=== PATIENT | male | born 1960 | race African-American/Black ===

== ENCOUNTER 2024-07-26 08:47 | Outpatient (CLI) | payer MEDICARE, SELFPAY ==
--- NOTE | 2024-07-29 19:04 | WPDHOMESLEEP ---
Sleep Study - Home Unattended Date of Study: 07/26/24 Ordering Provider: Greg DockeryMD Interpreting Provider: Naya Knox MD Home Sleep Study Type: Watch PAT Height: 1.75 m Weight: 136.985 kg Body Mass Index: 44.6 Neck Circumference (inches): 20 [place]: 24 Reason for Sleep Study Hypersomnolence Sleep History Keanu smalls is a 64-year-old man who had a home sleep test due to hypersomnolence. He did not feel of the sleep questionnaire therefore large amounts of data cannot be included in this report COUNTS INCLUDE 234 BEDS AT [facility] Past Medical History Medical History (Updated 07/29/24 @ 19:10 by Naya Knox MD) Dyslipidemia Seizure disorder Hypertension Family History Family History (Updated 07/29/24 @ 19:07 by Naya Knox MD) Mother Diabetes mellitus Father Malignant neoplasm of prostate Social History Social History (Updated 07/29/24 @ 19:09 by Naya Knox MD) Smoking packs per day: 0.75 Smoking cigarettes per day: 15.0 Years smoked: 25 Smoking pack-years: 18.75 Smoking status: Current every day smoker Alcohol intake: current Medications Medications: Albuterol sulfate inhaler 90 mcg per puff Atorvastatin 10 mg a day Hydrochlorothiazide 25 mg a day Lamotrigine 100 mg Metoprolol succinate ER 50 mg a day Naprosyn 500 mg Ozempic 0.25 mg or 0.5 mg (2 mg/1.5 mill) subcutaneous pen Injector' inject 0.25 mg weekly fir 4 weeks, then increase to 0.5 mg weekly for 4 weeks Valacyclovir Assessment and Plan Data The data obtained during this sleep study is adequate for interpretation. Certification This sleep study has been reviewed by a board certified sleep medicine physician.
[2024-07-29 19:10] VITALS: BMI 44.6
== END 2024-07-28 12:58 | disposition home or self-care (01) ==
PROVIDERS: PCP Internal Medicine; Visit Provider Internal Medicine
DX: G47.9 Sleep disorder, unspecified (principal)
CPT/HCPCS: 95800

== ENCOUNTER 2024-08-03 10:04 | Outpatient (CLI) | payer MEDICARE, SELFPAY ==
--- NOTE | ~2024-08-03 | CT_ITS ---
EXAMINATION: CT lung screening DATE: 08/03/2024 10:28 INDICATION: Nicotine dependence TECHNIQUE: Computed tomography (CT) of the chest was performed without intravenous contrast. Addition al 3D reconstructions utilizing coronal maximum intensity projection (MIP) were performed. Automated exposure control and iterative reconstruction technique were employed. The dose-length product was 26 3.13 mGy-cm. COMPARISON: None FINDINGS: Minimal biapical pleural-parenchymal scarring. Likely benign 7 mm triangular likely intrafissural lym ph node along the left major fissure with punctate calcification consistent with old granulomatous di sease. Additional tiny calcified nodule at the periphery of the right lower lobe also consistent with old granulomatous disease. 4-5 mm noncalcified right lower lobe nodule. Mild linear subpleural atele ctasis at the posterior right lower lobe. No pneumonia, pulmonary edema or pleural effusion. Heart si ze is normal. No pericardial effusion. Thoracic aorta is normal in caliber. No pathologically enlarge d thoracic lymphadenopathy. Bilateral gynecomastia. Visualized upper abdomen is unremarkable. Mild th oracic spondylosis. IMPRESSION: 1. Lung-RADS category 2: Benign appearance or behavior. Continue annual screening with noncontrast lo w-dose chest CT in 12 months. Reviewed, dictated and finalized at location B. NING CLERK IMPRESSION: 1. Lung-RADS category 2: Benign appearance or behavior. Continue annual screeni ng with noncontrast low-dose chest CT in 12 months.
--- OUTSIDE RECORDS SUMMARY | 2024-08-03 10:54 | XMS_ITS | CONTINUITY OF CARE DOCUMENT ---
Author Name mikiealejandrinamikiealejandrina Address Unknown Organization [facility] Address [address] [place] [address] Phone [phone] Care Team Providers Care System Operator Name Role Phone Buddy Hodge MD Unavailable PRASANTH GOLDSMITH MD Unavailable PRASANTH GOLDSMITH MD Unavailable [phone] PROBLEMS Condition Status Date Provider Notes Wheezing active Brooke Washburn Cardiology examination active Klaus green [employer] Shortness of breath active Klaus Acevedo [employer] Leg edema active Klaus Acevedo [employer] Abnormal EKG active Klaus Acevedo [employer] Hyperlipidemia active Klaus Acevedo [employer] Hypertension active Klaus Acevedo [employer] Obesity active Klaus Acevedo [employer] Seizure active Klaus Acevedo [employer] Body mass index (BMI) 45.0-49.9, adult active Klaus Acevedo [employer] VISHAL? active Klaus Acevedo [employer] PAT[employer] ENCOUNTERS Date Type Provider Location Encounter Diag nosis 07/29 - 07/29 In-person encounter Office Visit [facility] Cardiology examinationShortness of breat hLeg edemaAbnormal EKGHyperlipidemiaHypertensionObesitySeizureBody mass index (BMI) 45.0-49.9, adultOSA? VITAL SIGNS Date Observation Value Provider Body Mass Index (Ratio) 45.48 kg/m2 Lito Hodge MD blood pressure, diastolic 99 mm[Hg] Morena ruth David blood pressure, systolic 133 mm[Hg] Sania muller David oxygen saturation, oximetry 95 % Mindi David pulse rate 94 /min Mindi David respiratory rate E&M 14 /min Mindi Hernandez weight E&M 308 [lb_av] Mindi David height E&M 69 [in_i] Mindi David blood pressure, cuff size regular Morena ruth Hernandez ALLERGIES Allergy Name Onset Date Reaction Criticality Status LISINOPRIL High Criticality active HISTORY OF MEDICATION USE Medication Status Instructions Dates Provider Indications Com ments amlodipine 10 mg tablet active Take 1 t ablet by mouth once daily Mnidi Heranndez atorvastatin 10 mg tablet active TAKE 1 TABLET BY MOUTH EVERY DAY Mindi Hernandez hydrochlorothiazide 25 mg tablet active TAKE 1 TABLET BY MOUTH DAILY Mindievelia Hernandez SOCIAL HISTORY Date Observation Value Provider personal history of marijuana use no Klaus Rongey MANUEL drug use no Klaus Natany MANUEL alcohol use, type Gin Klaus R ongey [employer] alcohol use, average drinks per day socia l Klaus Rongey [employer] alcohol use yes Klaus Rongey [employer] smoking, year quit 2023 Klaus Rongey [employer] smoking history, total pack/day 1/2 Klaus Rongey [employer] cigarette use yes Klaus Ronge y [employer] smoking status Former smoker Klaus santamaria NP INSURANCE PROVIDERS Payer name Policy type / Coverage type [place] [employer] party ID AARP MEDICARE ADVANTAGE ([facility] COMPLETE PPO) Other [id number] ADVANCE DIRECTIVES Name Date DISCUSSED - NO DECISION MADE TREATMENT PLAN Date Name Performer Cardiology: H is updated medication list for this problem includes: Atorvastatin 10 Mg Tablet (Atorvastatin) ..... Take 1 tablet by mouth every day Klaus Acevedo NP Cardiology:If sleep study is positive, recommend CPAP Klaus Acevedo NP Cardiology:Needs med reconciliation His updated medication list for this problem includes: Amlodipine 10 Mg Tablet (Amlodipine) ..... Take 1 tablet by mouth once daily Hydrochlorothiazide 25 Mg Tablet (Hydrochlorothiazide) ..... Take 1 tablet by mouth daily BP today: 133/99 Klaus Acevedo NP Cardiology:Had PFTs normal C heck echo to assess cardiac anatomy and function A rrange for stress nuclear to r/o ischemia H as a pending sleep study Klaus Acevedo NP Cardiology:In light of his concerning sx of sob, will arrange for a exercise nuclear stress to be done. R ecommend nuclear imaging due toabnormal baseline changes in EKG Klausleno Gamamarcelino JACKSON Date Name Stress Exercise Card iolite Complete Echo HISTORY OF PROCEDURES Procedure Date Procedure Name Provider Procedure Notes S tatus EKG Buddy Hodge MD completed Spirometry Alex More Jr, MD completed FVC / MVV with bronchodilator - 94280 Alex More Jr, MD completed SpO2 w/o 6min walk/titration Alex More Jr, MD completed SVC - [id number] Alex More Jr, MD completed DLCO - [id number] Alex More Jr, MD completed
--- OUTSIDE RECORDS SUMMARY | 2024-08-03 10:54 | XMS_ITS | Data Portability ---
Author Organization [facility] Edwin Valdez Address [address] [place] [address] Care Team Providers Care Timber Management Specialist Name Role Phone PRASANTH DOCKERY Primary Care Provider [phone] Assessment Encounter Date Assessment Date Assessment LastModified by Organization Details LastModified Time 02/09/2024 02/09/2024 CBC CMP lipid A1 c thyroid studies and a PSA we will get records from [place] maintain him on his regular medications I will see him in 4 months obesity handout. Pending results of blood work we will try to get him in on GLP 1 agent there are no contraindications [email or web address] Not available 02/27/2024 17:21:03 06/14/2024 06/14/2024 dermatology. Healthy lifestyle care instructions. LD CT. PFTs. Echo. Blood work. Continue current therapy. Stay off cigarettes. 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 No seizure activity in the last year if not longer follow up with me in 4 months. Dietary strategies discussed for hypertension prediabetes and obesity [email or web address] Not available 06/19/2024 13:57:09 Plan of Treatment Reminders Order Date Submit Date Provider Last Modified By Organization Details Last Modified Time Details Appointments ANY 15 2024 10:15A Mariano Dockery MD Not available Not available Not available Lab PSA, total, serum or plasma 2023 024 [place] [facility], [address] [address], [place], [address], 02/10/2024 09:15:15 unliste d lab - T4, free 2023 024 [place] [facility], [address], [place], [address], 02/10/2024 09:15:11 T3, free, serum or plasma 2023 024 [place] [facility], [address], [place], [address], 02/10/2024 09:15:15 TSH, ultra-s ensitiv e, serum 2023 024 [place] [facility], [address], [place], [address], 02/10/2024 09:15:13 lipid panel, serum 2023 024 [place] [facility], [address], [place], [address], 02/10/2024 09:15:10 CMP, serum or plasma 2023 024 [place] [facility], [address], [place], [address], 02/10/2024 09:15:12 CBC w/ auto diff 2023 024 [place] [facility], [address], [place], [address], 02/10/2024 09:15:14 HbA1c (hemogl obin A1c), blood 2023 024 [place] [facility], [address], [place], [address], 02/10/2024 09:15:12 unliste d lab - T4, free 2023 024 [place] [facility], [address], [place], [address], 06/15/2024 09:13:53 T3, free, serum or plasma 2023 024 [place] [facility], [address], [place], [address], 06/15/2024 09:13:59 TSH, ultra-s ensitiv e, serum 2023 024 [place] [facility], [address], [place], [address], 06/15/2024 09:13:56 lipid panel, serum 2023 024 [place] [facility], [address], [place], [address], 06/15/2024 09:13:52 CBC w/ auto diff 2023 024 [place] [facility], [address], [place], [address], 06/15/2024 09:13:57 CMP, serum or plasma 2023 024 [place] [facility], [address], [place], [address], 06/15/2024 09:13:[address] referra l 2023 024 [facility], [address] [place] [address] Dr Enoch Marvin, [address], [place], [address], 07/27/2024 14:10:29 dermato logist referra l 2023 024 [facility], [address] [place] [address], [address], 07/26/2024 14:48:20 Procedures None recorde d. Surgeries None recorde d. Imaging home sleep study 2023 024 [facility] ([facility]), [address], [place], [address], 07/27/2024 14:09:26 LDCT, chest, for lung cancer screeni ng 2023 024 [facility] (Imaging), [address], [place], [address], 08/03/2024 11:45:13 US, echocar diogram 2023 024 [facility], [address], [address], [place], [address], 07/27/2024 14:09:02 PFT, complet e 2023 024 [facility], [address], [address], [place], [address], 06/20/2024 16:25:26 Medication Orders None recorde d. Patient TargetsNo targets recorded. Patient Instructions Encounter Date Encounter Id Patient Instructions Last Modified By Organization Details Last Modified Time 02/09/2024 [id number] A healthy lifestyle: care instructions [email or web address] Not available 02/09/2024 16:56:33 06/14/2024 [id number] A healthy lifestyle: care instructions Not available 06/14/2024 11:08:02 Reason for Referral City Recorder Referral for S kin lesion Referring Physician: Prasanth Dockery, Internal Medicine, Encounter Date: 06/14/2024 Urologist Referral for Erect ile dysfunction Referring Physician: Prasanth Dockery, Internal Medicine, Encounter Date: 06/14/2024 Results Created Date Observation Date Name Description Value Unit Range Abnormal Flag Note LastModifiedBy Organization Detail LastModifiedTime 02/09/2002/10/2024 LIPID PANEL cholesterol, total 200 mg/dL 100-19 9 above high normal Not Available [facility] ([facility]) [address] [facility], [place], [address], 02/10/2024 09:15:10 02/09/20 24 02/10/2024 LIPID PANEL triglyceride s 218 mg/dL 0-149 above high normal Not Available [facility] ([facility]) [address] [facility] [place] [place], [address], 02/10/2024 09:15:10 02/09/20 24 02/10/2024 LIPID PANEL HDL cholesterol 42 mg/dL >39 Not Available [facility] ([facility]) [address] [facility] [place] [place], [address], 02/10/2024 09:15:10 02/09/20 24 02/10/2024 LIPID PANEL VLDL cholesterol lynn 38 mg/dL 5-40 Not Available [facility] ([facility]) [address] [facility] [place] [place], [address], 02/10/2024 09:15:10 02/09/20 24 02/10/2024 LIPID PANEL LDL chol calc ([facility]) 120 mg/dL 0-99 above high normal Not Available [facility] ([facility]) [address] [place], [address], 02/10/2024 09:15:10 02/09/20 24 02/10/2024 T4, FREE T4,free(dire ct) 0.86 NG/dL 0.82-1 .77 Not Available [facility] ([facility]) [address] [facility] [place] [place], [address], 02/10/2024 09:15:11 02/09/20 24 02/10/2024 COMP. METAB OLIC PANEL (14) glucose 83 mg/dL 70-99 Not Available [facility] ([facility]) [address] [facility] [place] [place], [address], 02/10/2024 09:15:11 02/09/20 24 02/10/2024 COMP. METAB OLIC PANEL (14) BUN 15 mg/dL 8-27 Not Available [facility] ([facility]) [address] [place], [address], 02/10/2024 09:15:11 02/09/20 24 02/10/2024 COMP. METAB OLIC PANEL (14) creatinine 1.34 mg/dL 0.76-1 .27 above high normal Not Available [facility] ([facility]) [address] [facility], [place], [address], 02/10/2024 09:15:11 02/09/20 24 02/10/2024 COMP. METAB OLIC PANEL (14) eGFR 60 mL/mi n/1.7 3 >59 Not Available [facility] ([facility]) [address] [facility], [place], [address], 02/10/2024 09:15:11 02/09/20 24 02/10/2024 COMP. METAB OLIC PANEL (14) BUN/creatini ne ratio 11 -24 Not Available [facility] ([facility]) [address] [facility], [place], [address], 02/10/2024 09:15:11 02/09/20 24 02/10/2024 COMP. METAB OLIC PANEL (14) sodium 139 mmol/ L 134-14 4 Not Available [facility] ([facility]) [address] [facility] [place] [place], [address], 02/10/2024 09:15:11 02/09/20 24 02/10/2024 COMP. METAB OLIC PANEL (14) potassium 4.4 mmol/ L 3.5-5. 2 Not Available [facility] ([facility]) [address] [facility], [place], [address], 02/10/2024 09:15:11 02/09/20 24 02/10/2024 COMP. METAB OLIC PANEL (14) chloride 102 mmol/ L 96-106 Not Available [facility] ([facility]) [address] [facility], [place], [address], 02/10/2024 09:15:11 02/09/20 24 02/10/2024 COMP. METAB OLIC PANEL (14) carbon dioxide, total 23 mmol/ L 20-29 Not Available [facility] ([facility]) [address] [facility], [place], [address], 02/10/2024 09:15:11 02/09/20 24 02/10/2024 COMP. METAB OLIC PANEL (14) calcium 9.7 mg/dL 8.6-10 .2 Not Available [facility] ([facility]) [address] [facility], [place], [address], 02/10/2024 09:15:11 02/09/20 24 02/10/2024 COMP. METAB OLIC PANEL (14) protein, total 6.9 g/dL 6.0-8. 5 Not Available [facility] ([facility]) [address] [facility], [place], [address], 02/10/2024 09:15:11 02/09/20 24 02/10/2024 COMP. METAB OLIC PANEL (14) albumin 4.1 g/dL 3.9-4. 9 Not Available [facility] ([facility]) [address] [facility], [place], [address], 02/10/2024 09:15:11 02/09/20 24 02/10/2024 COMP. METAB OLIC PANEL (14) globulin, total 2.8 g/dL 1.5-4. 5 Not Available [facility] ([facility]) [address] [facility], [place], [address], 02/10/2024 09:15:11 02/09/20 24 02/10/2024 COMP. METAB OLIC PANEL (14) bilirubin, total <0.2 mg/dL 0.0-1. 2 Not Available [facility] ([facility]) [address] [facility] [place] [place], [address], 02/10/2024 09:15:11 02/09/20 24 02/10/2024 COMP. METAB OLIC PANEL (14) alkaline phosphatase 93 IU/L 44-121 Not Available [facility] ([facility]) [address] [facility] [place], [address], 02/10/2024 09:15:11 02/09/20 24 02/10/2024 COMP. METAB OLIC PANEL (14) AST (SGOT) 20 IU/L 0-40 Not Available [facility] ([facility]) [address] [facility] [place], [address], 02/10/2024 09:15:11 02/09/20 24 02/10/2024 COMP. METAB OLIC PANEL (14) ALT (SGPT) 21 IU/L 0-44 Not Available [facility] ([facility]) [address] [facility], [place], [address], 02/10/2024 09:15:11 02/09/20 24 02/10/2024 HEMOG LOBIN A1C hemoglobin A1C 5.9 % 4.8-5. 6 above high normal Predi abete s: 5.7 - 6.4 Diabe christiano: >6.4 Glyce yessenia contr ol for adult s with diabe christiano: <7.0 Not Available [facility] ([facility]) [address] [facility], [place], [address], 02/10/2024 09:15:12 02/09/20 24 02/10/2024 TSH TSH 1.670 uIU/m L 0.450- 4.500 Not Available [facility] ([facility]) [address] [facility], [place], [address], 02/10/2024 09:15:13 02/09/20 24 02/10/2024 CBC WITH DIFFE RENTI AL/PL ATELE T WBC 6.5 x10e3 /uL 3.4-10 .8 Not Available [facility] ([facility]) [address] [facility], [place], [address], 02/10/2024 09:15:14 02/09/20 24 02/10/2024 CBC WITH DIFFE RENTI AL/PL ATELE T RBC 5.37 x10e6 /uL 4.14-5 .80 Not Available [facility] ([facility]) [address] [facility], [place], [address], 02/10/2024 09:15:14 02/09/20 24 02/10/2024 CBC WITH DIFFE RENTI AL/PL ATELE T hemoglobin 15.3 g/dL 13.0-1 7.7 Not Available [facility] ([facility]) [address] [facility], [place], [address], 02/10/2024 09:15:14 02/09/20 24 02/10/2024 CBC WITH DIFFE RENTI AL/PL ATELE T hematocrit 47.8 % 37.5-5 1.0 Not Available [facility] ([facility]) [address] [facility], [place], [address], 02/10/2024 09:15:14 02/09/20 24 02/10/2024 CBC WITH DIFFE RENTI AL/PL ATELE T MCV 89 fL 79-97 Not Available [facility] ([facility]) [address] [place], [address], 02/10/2024 09:15:14 02/09/20 24 02/10/2024 CBC WITH DIFFE RENTI AL/PL ATELE T MCH 28.5 pg 26.6-3 3.0 Not Available [facility] ([facility]) [address] [facility], [place], [address], 02/10/2024 09:15:14 02/09/20 24 02/10/2024 CBC WITH DIFFE RENTI AL/PL ATELE T MCHC 32.0 g/dL 31.5-3 5.7 Not Available [facility] ([facility]) [address] [facility], [place], [address], 02/10/2024 09:15:14 02/09/20 24 02/10/2024 CBC WITH DIFFE RENTI AL/PL ATELE T RDW 12.9 % 11.6-1 5.4 Not Available [facility] ([facility]) [address] [facility], [place], [address], 02/10/2024 09:15:14 02/09/20 24 02/10/2024 CBC WITH DIFFE RENTI AL/PL ATELE T platelets 322 x10e3 /uL 150-45 0 Not Available [facility] ([facility]) [address] [facility], [place], [address], 02/10/2024 09:15:14 02/09/20 24 02/10/2024 CBC WITH DIFFE RENTI AL/PL ATELE T neutrophils 48 % notest ab. Not Available [facility] ([facility]) [address] [facility], [place], [address], 02/10/2024 09:15:14 02/09/20 24 02/10/2024 CBC WITH DIFFE RENTI AL/PL ATELE T lymphs 37 % notest ab. Not Available [facility] ([facility]) [address] [facility], [place], [address], 02/10/2024 09:15:14 02/09/20 24 02/10/2024 CBC WITH DIFFE RENTI AL/PL ATELE T monocytes 11 % notest ab. Not Available [facility] ([facility]) [address] [facility], [place], [address], 02/10/2024 09:15:14 02/09/20 24 02/10/2024 CBC WITH DIFFE RENTI AL/PL ATELE T eos 3 % notest ab. Not Available [facility] ([facility]) [address] [facility], [place], [address], 02/10/2024 09:15:14 02/09/20 24 02/10/2024 CBC WITH DIFFE RENTI AL/PL ATELE T basos 1 % notest ab. Not Available [facility] ([facility]) [address] [facility] [place], [address], 02/10/2024 09:15:14 02/09/20 24 02/10/2024 CBC WITH DIFFE RENTI AL/PL ATELE T neutrophils (absolute) 3.1 x10e3 /uL 1.4-7. 0 Not Available [facility] ([facility]) [address] [facility], [place], [address], 02/10/2024 09:15:14 02/09/20 24 02/10/2024 CBC WITH DIFFE RENTI AL/PL ATELE T lymphs (absolute) 2.4 x10e3 /uL 0.7-3. 1 Not Available [facility] ([facility]) [address] [facility], [place], [address], 02/10/2024 09:15:14 02/09/20 24 02/10/2024 CBC WITH DIFFE RENTI AL/PL ATELE T monocytes(ab solute) 0.7 x10e3 /uL 0.1-0. 9 Not Available [facility] ([facility]) [address] [facility], [place], [address], 02/10/2024 09:15:14 02/09/20 24 02/10/2024 CBC WITH DIFFE RENTI AL/PL ATELE T eos (absolute) 0.2 x10e3 /uL 0.0-0. 4 Not Available [facility] ([facility]) [address] [facility], [place], [address], 02/10/2024 09:15:14 02/09/20 24 02/10/2024 CBC WITH DIFFE RENTI AL/PL ATELE T baso (absolute) 0.1 x10e3 /uL 0.0-0. 2 Not Available [facility] ([facility]) [address] [facility], [place], [address], 02/10/2024 09:15:14 02/09/20 24 02/10/2024 CBC WITH DIFFE RENTI AL/PL ATELE T immature granulocytes 0 % notest ab. Not Available [facility] ([facility]) [address] [facility], [place], [address], 02/10/2024 09:15:14 02/09/20 24 02/10/2024 CBC WITH DIFFE RENTI AL/PL ATELE T immature grans (abs) 0.0 x10e3 /uL 0.0-0. 1 Not Available [facility] ([facility]) [address] [facility], [place], [address], 02/10/2024 09:15:14 02/09/20 24 02/10/2024 PROST ATE-S PECIF IC AG prostate specific Ag 1.4 NG/mL 0.0-4. 0 Shell ECLIA metho dolog y. Accor ding to the Ameri can [employer]o g[employer] iatio n, Serum PSA shoul d decre ase and remai n at undet ectab le level s after radic al prost atect shruthi. The AUA defin es bioch emica l recur rence as an initi al PSA value 0.2 ng/mL or great er follo wed by a subse quent confi rmato ry PSA value 0.2 ng/mL or great er. Value s obtai leena with diffe rent assay metho ds or kits canno t be used inter lowry eably . Resul ts canno t be inter prete d as absol [facility]. [facility]orge evide nce of the prese nce or absen ce of an mattson se. Not Available [facility] ([facility]) [address] [facility], [place], [address], 02/10/2024 09:15:15 02/09/20 24 02/10/2024 TRIIO DOTHY WADE E (T3), FREE triiodothyro nine (T3), free 3.2 pg/mL 2.0-4. 4 Not Available [facility] ([facility]) [address] [facility], [place], [address], 02/10/2024 09:15:15 06/14/20 24 06/15/2024 LIPID PANEL cholesterol, total 188 mg/dL 100-19 9 Not Available [facility] ([facility]) [address] [place], [address], 06/15/2024 09:13:52 06/14/20 24 06/15/2024 LIPID PANEL triglyceride s 140 mg/dL 0-149 Not Available [facility] ([facility]) [address] [place], [address], 06/15/2024 09:13:52 06/14/20 24 06/15/2024 LIPID PANEL HDL cholesterol 44 mg/dL >39 Not Available [facility] ([facility]) [address] [place], [address], 06/15/2024 09:13:52 06/14/20 24 06/15/2024 LIPID PANEL VLDL cholesterol lynn 25 mg/dL 5-40 Not Available [facility] ([facility]) [address] [place], [address], 06/15/2024 09:13:52 06/14/20 24 06/15/2024 LIPID PANEL LDL chol calc ([facility]) 119 mg/dL 0-99 above high normal Not Available [facility] ([facility]) [address] [place], [address], 06/15/2024 09:13:52 06/14/20 24 06/15/2024 T4, FREE T4,free(dire ct) 0.84 NG/dL 0.82-1 .77 Not Available [facility] ([facility]) [address] [place], [address], 06/15/2024 09:13:53 06/14/20 24 06/15/2024 COMP. METAB OLIC PANEL (14) glucose 101 mg/dL 70-99 above high normal Not Available [facility] ([facility]) [address] [place], [address], 06/15/2024 09:13:55 06/14/20 24 06/15/2024 COMP. METAB OLIC PANEL (14) BUN 14 mg/dL 8-27 Not Available [facility] ([facility]) [address] [facility], [place], [address], 06/15/2024 09:13:55 06/14/20 24 06/15/2024 COMP. METAB OLIC PANEL (14) creatinine 1.16 mg/dL 0.76-1 .27 Not Available [facility] ([facility]) [address] [facility] [place], [address], 06/15/2024 09:13:55 06/14/20 24 06/15/2024 COMP. METAB OLIC PANEL (14) eGFR 72 mL/mi n/1.7 3 >59 Not Available [facility] ([facility]) [address] [facility] [place] [place], [address], 06/15/2024 09:13:55 06/14/20 24 06/15/2024 COMP. METAB OLIC PANEL (14) BUN/creatini ne ratio 12 - Not Available [facility] ([facility]) [address] [facility], [place], [address], 06/15/2024 09:13:55 06/14/20 24 06/15/2024 COMP. METAB OLIC PANEL (14) sodium 139 mmol/ L 134-14 4 Not Available [facility] ([facility]) [address] [facility] [place] [place], [address], 06/15/2024 09:13:55 06/14/20 24 06/15/2024 COMP. METAB OLIC PANEL (14) potassium 4.3 mmol/ L 3.5-5. 2 Not Available [facility] ([facility]) [address] [facility] [place] [place], [address], 06/15/2024 09:13:55 06/14/20 24 06/15/2024 COMP. METAB OLIC PANEL (14) chloride 104 mmol/ L 96-106 Not Available [facility] ([facility]) [address] [facility] [place], [address], 06/15/2024 09:13:55 06/14/20 24 06/15/2024 COMP. METAB OLIC PANEL (14) carbon dioxide, total 20 mmol/ L 20-29 Not Available [facility] ([facility]) [address] [facility] [place] [place], [address], 06/15/2024 09:13:55 06/14/20 24 06/15/2024 COMP. METAB OLIC PANEL (14) calcium 9.0 mg/dL 8.6-10 .2 Not Available [facility] ([facility]) [address] [facility] [place], [address], 06/15/2024 09:13:55 06/14/20 24 06/15/2024 COMP. METAB OLIC PANEL (14) protein, total 6.6 g/dL 6.0-8. 5 Not Available [facility] ([facility]) [address] [facility] [place] [place], [address], 06/15/2024 09:13:55 06/14/20 24 06/15/2024 COMP. METAB OLIC PANEL (14) albumin 4.1 g/dL 3.9-4. 9 Not Available [facility] ([facility]) [address] [facility] [place] [place], [address], 06/15/2024 09:13:55 06/14/20 24 06/15/2024 COMP. METAB OLIC PANEL (14) globulin, total 2.5 g/dL 1.5-4. 5 Not Available [facility] ([facility]) [address] [facility] [place] [place], [address], 06/15/2024 09:13:55 06/14/20 24 06/15/2024 COMP. METAB OLIC PANEL (14) bilirubin, total 0.3 mg/dL 0.0-1. 2 Not Available [facility] ([facility]) [address] [facility], [place], [address], 06/15/2024 09:13:55 06/14/20 24 06/15/2024 COMP. METAB OLIC PANEL (14) alkaline phosphatase 90 IU/L 44-121 Not Available [facility] ([facility]) [address] [facility], [place], [address], 06/15/2024 09:13:55 06/14/20 24 06/15/2024 COMP. METAB OLIC PANEL (14) AST (SGOT) 30 IU/L 0-40 Not Available [facility] ([facility]) [address] [facility], [place], [address], 06/15/2024 09:13:55 06/14/20 24 06/15/2024 COMP. METAB OLIC PANEL (14) ALT (SGPT) 33 IU/L 0-44 Not Available [facility] ([facility]) [address] [facility], [place], [address], 06/15/2024 09:13:55 06/14/20 24 06/15/2024 TSH TSH 1.480 uIU/m L 0.450- 4.500 Not Available [facility] ([facility]) [address] [place], [address], 06/15/2024 09:13:56 06/14/20 24 06/15/2024 CBC WITH DIFFE RENTI AL/PL ATELE T WBC 6.3 x10e3 /uL 3.4-10 .8 Not Available [facility] ([facility]) [address] [place], [address], 06/15/2024 09:13:57 06/14/20 24 06/15/2024 CBC WITH DIFFE RENTI AL/PL ATELE T RBC 5.45 x10e6 /uL 4.14-5 .80 Not Available [facility] ([facility]) [address] [facility] [place], [address], 06/15/2024 09:13:57 06/14/20 24 06/15/2024 CBC WITH DIFFE RENTI AL/PL ATELE T hemoglobin 15.2 g/dL 13.0-1 7.7 Not Available [facility] ([facility]) [address] [place], [address], 06/15/2024 09:13:57 06/14/2006/15/2024 CBC WITH DIFFE RENTI AL/PL ATELE T hematocrit 47.1 % 37.5-5 1.0 Not Available [facility] ([facility]) [address] [place], [address], 06/15/2024 09:13:57 06/14/20 24 06/15/2024 CBC WITH DIFFE RENTI AL/PL ATELE T MCV 86 fL 79-97 Not Available [facility] ([facility]) [address] [facility], [place], [address], 06/15/2024 09:13:57 06/14/2006/15/2024 CBC WITH DIFFE RENTI AL/PL ATELE T MCH 27.9 pg 26.6-3 3.0 Not Available [facility] ([facility]) [address] [place], [address], 06/15/2024 09:13:57 06/14/2006/15/2024 CBC WITH DIFFE RENTI AL/PL ATELE T MCHC 32.3 g/dL 31.5-3 5.7 Not Available [facility] ([facility]) [address] [place], [address], 06/15/2024 09:13:57 06/14/20 24 06/15/2024 CBC WITH DIFFE RENTI AL/PL ATELE T RDW 13.7 % 11.6-1 5.4 Not Available [facility] ([facility]) [address] [place], [address], 06/15/2024 09:13:57 06/14/20 24 06/15/2024 CBC WITH DIFFE RENTI AL/PL ATELE T platelets 292 x10e3 /uL 150-45 0 Not Available [facility] ([facility]) [address] [facility], [place], [address], 06/15/2024 09:13:57 06/14/20 24 06/15/2024 CBC WITH DIFFE RENTI AL/PL ATELE T neutrophils 57 % notest ab. Not Available [facility] ([facility]) [address] [facility], [place], [address], 06/15/2024 09:13:57 06/14/20 24 06/15/2024 CBC WITH DIFFE RENTI AL/PL ATELE T lymphs 29 % notest ab. Not Available [facility] ([facility]) [address] [facility], [place], [address], 06/15/2024 09:13:57 06/14/20 24 06/15/2024 CBC WITH DIFFE RENTI AL/PL ATELE T monocytes 11 % notest ab. Not Available [facility] ([facility]) [address] [facility], [place], [address], 06/15/2024 09:13:57 06/14/20 24 06/15/2024 CBC WITH DIFFE RENTI AL/PL ATELE T eos 2 % notest ab. Not Available [facility] ([facility]) [address] [facility], [place], [address], 06/15/2024 09:13:57 06/14/20 24 06/15/2024 CBC WITH DIFFE RENTI AL/PL ATELE T basos 1 % notest ab. Not Available [facility] ([facility]) [address] [facility], [place], [address], 06/15/2024 09:13:57 06/14/20 24 06/15/2024 CBC WITH DIFFE RENTI AL/PL ATELE T neutrophils (absolute) 3.6 x10e3 /uL 1.4-7. 0 Not Available [facility] ([facility]) [address] [facility], [place], [address], 06/15/2024 09:13:57 06/14/20 24 06/15/2024 CBC WITH DIFFE RENTI AL/PL ATELE T lymphs (absolute) 1.8 x10e3 /uL 0.7-3. 1 Not Available [facility] ([facility]) [address] [facility], [place], [address], 06/15/2024 09:13:57 06/14/20 24 06/15/2024 CBC WITH DIFFE RENTI AL/PL ATELE T monocytes(ab solute) 0.7 x10e3 /uL 0.1-0. 9 Not Available [facility] ([facility]) [address] [facility], [place], [address], 06/15/2024 09:13:57 06/14/20 24 06/15/2024 CBC WITH DIFFE RENTI AL/PL ATELE T eos (absolute) 0.1 x10e3 /uL 0.0-0. 4 Not Available [facility] ([facility]) [address] [place] [address], [place], [address], 06/15/2024 09:13:57 06/14/20 24 06/15/2024 CBC WITH DIFFE RENTI AL/PL ATELE T baso (absolute) 0.1 x10e3 /uL 0.0-0. 2 Not Available [facility] ([facility]) [address] [place] [address], [address], 06/15/2024 09:13:57 06/14/20 24 06/15/2024 CBC WITH DIFFE RENTI AL/PL ATELE T immature granulocytes 0 % notest ab. Not Available [facility] ([facility]) [address] [place], [address], 06/15/2024 09:13:57 06/14/20 24 06/15/2024 CBC WITH DIFFE RENTI AL/PL ATELE T immature grans (abs) 0.0 x10e3 /uL 0.0-0. 1 Not Available [facility] ([facility]) [address] [facility], [place], [address], 06/15/2024 09:13:57 06/14/20 24 06/15/2024 TRIIO DOTHY WADE E (T3), FREE triiodothyro nine (T3), free 3.8 pg/mL 2.0-4. 4 Not Available [facility] ([facility]) [address] [facility], [place], [address], 06/15/2024 09:13:58 06/20/20 24 06/20/2024 PFT, compl ete No observ ation record ed. [facility] [address] [facility] [address], [place], [address], 06/20/2024 23:16:34 08/03/19 25 08/03/2024 LDCT, chest , for lung cance r scree margy No observ ation record ed. [facility] [address], [place], [address], 08/03/2024 11:45:13 Result Notes None recorded. Problems Name Problem SNOMED Code Status Onset Date Resolution Date Notes Provider Name and Address Organization Details Recorded Time Essential hypertension 26000084 Active 2023 Faith Stone LPN null, [place] - [facility] 4 10:13:59 Epilepsy 76832344 Active 2023 Faith Stone LPN [place] [facility] 4 10:14:14 Obstructive sleep apnea syndrome 96320876 Active 2023 Prasanth Dockery MD Attn: Eneida g,[address] [facility], [place], [address], [place] [facility] 4 11:12:29 Gastroesophage al reflux disease without esophagitis 286214907 Active 2023 Prasanth Dockery MD Attn: Eneida cabrera,[address] [facility], [place], [address] [place] - [facility] 4 11:12:38 Skin lesion 63934986 Active 2023 Stewart Rolon [place], [place] [facility] 4 12:23:37 Body mass index 40+ - severely obese 252744230 Active 2023 Stewart Rolon [place] [facility] 4 12:23:38 Morbid obesity 832479004 Active 2023 Stewart Rolon [place] [facility] 4 12:23:39 Dyspnea 398753443 Active 2023 Stewart Rol[place] [facility] 4 12:23:43 Erectile dysfunction 553823023 Active 2023 Stewart Rol[place] [facility] 4 12:23:46 Sleep disorder 60962111 Active 2023 Stewart Rol[place] [facility] 4 12:23:48 Nicotine dependence 49033684 Active 2023 Stewart Rolon [place] [facility] 4 12:23:50 Problem Notes None recorded. Procedures Surgical History Date Name Laterality Status Provider Name and Address Organization Details Recorded Time procedure on brain completed Itzel Young MA [place] - [facility]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
== END 2024-08-03 10:05 | disposition home or self-care (01) ==
PROVIDERS: PCP Internal Medicine; Visit Provider Internal Medicine
DX: Z12.2 Encounter for screening for malignant neoplasm of respiratory organs (principal); Z87.891 Personal history of nicotine dependence
CPT/HCPCS: 71271

== ENCOUNTER 2024-08-18 13:32 | Outpatient (CLI) | payer MEDICARE, SELFPAY ==
--- OUTSIDE RECORDS SUMMARY | 2024-08-18 13:38 | XMS_ITS | Data Portability ---
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 Pending results of blood work we will try to get him in on GLP 1 agent there are no contraindications [email or web address] Not available 02/27/2024 17:21:03 06/14/2024 06/14/2024 dermatology. Healthy lifestyle care instructions. LD CT. PFTs. Echo. Blood work. Continue current therapy. Stay off cigarettes. 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 No seizure activity in the last year if not longer follow up with me in 4 months. Dietary strategies discussed for hypertension prediabetes and obesity Not available 06/19/2024 13:57:09 Plan of Treatment Reminders Order Date Submit Date Provider Last Modified By Organization Details Last Modified Time Details Appointments ANY 15 2024 10:15A Mariano Dockery MD Not available Not available Not available Lab unlist ed lab - T4, free 2023 024 [place], [address] [address], [place], [address], 06/15/2024 09:13:53 T3, free, serum or plasma 2023 024 [facility], [address], [address], [place], [address], 06/15/2024 09:13:59 TSH, ultra- sensit prabhakar, serum [address] [facility], [address], [address], [place], [address], 06/15/2024 09:13:56 lipid panel, serum [address] [facility], [address], [place], [address], 06/15/2024 09:13:52 CBC w/ auto diff [address] [facility], [address], [place], [address], 06/15/2024 09:13:57 CMP, serum or plasma [address] [facility], [address], [place], [address], 06/15/2024 09:13:55 PSA, total, serum or plasma [address] [facility], [address], [address], [place], [address], 02/10/2024 09:15:15 unlist ed lab - T4, free [address] [facility], [address], [place], [address], 02/10/2024 09:15:11 T3, free, serum or plasma [address] [facility], [address], [place], [address], 02/10/2024 09:15:15 TSH, ultra- sensit prabhakar, serum 2023 024 [place], [address], [address], [place], [address], 02/10/2024 09:15:13 lipid panel, serum 2023 024 [place], [address], [place], [address], 02/10/2024 09:15:10 CMP, serum or plasma 2023 024 [facility], [address], [place], [address], 02/10/2024 09:15:12 CBC w/ auto diff 2023 024 [place], [address], [place], [address], 02/10/2024 09:15:14 HbA1c (hemog lobin A1c), blood 2023 024 [facility], [address], [address], [place], [address], 02/10/2024 09:15:12 Referral urolog ist referr al 2023 024 [facility], [address] [place] [address] Dr Enoch Marvin, [address], [place], [address], 08/17/2024 04:11:16 dermat ologis t referr al 2023 024 [place], [address] [place] [address], [address], 08/16/2024 04:08:30 Procedures None record ed. Surgeries None record ed. Imaging home sleep study 2023 024 [facility] ([facility]), [address], [place], [address], 08/05/2024 21:27:35 LDCT, chest, for lung cancer screen ing 2023 024 [facility] (Imaging), [address], [place], [address], 08/05/2024 09:13:59 US, echoca rdiogr am 2023 024 [facility], [address], [address], [place], [address], 08/10/2024 16:05:01 PFT, comple te 2023 024 [facility], [address], [address], [place], [address], 06/20/2024 16:25:26 Medication Orders None record ed. Patient TargetsNo targets recorded. Patient Instructions Encounter Date Encounter Id Patient Instructions Last Modified By Organization Details Last Modified Time 02/09/2024 [id number] A healthy lifestyle: care instructions Not available 02/09/2024 16:56:33 06/14/2024 [id number] A healthy lifestyle: care instructions Not available 06/14/2024 11:08:02 Reason for Referral Coiler Referral for S kin lesion Referring Physician: Prasanth Dockery, Internal Medicine, Encounter Date: 06/14/2024 Urologist Referral for Erect ile dysfunction Referring Physician: Prasanth Dockery, Internal Medicine, Encounter Date: 06/14/2024 Results Created Date Observation Date Name Description Value Unit Range Abnormal Flag Note LastModifiedBy Organization Detail LastModifiedTime 02/09/2002/10/2024 LIPID PANEL cholesterol, total 200 mg/dL 100-19 9 above high normal Not Available [facility] ([facility]) [address] [facility], [place], [address], 02/10/2024 09:15:10 02/09/20 24 02/10/2024 LIPID PANEL triglyceride s 218 mg/dL 0-149 above high normal Not Available [facility] ([facility]) [address] [facility] [place], [address], 02/10/2024 09:15:10 02/09/20 24 02/10/2024 LIPID PANEL HDL cholesterol 42 mg/dL >39 Not Available [facility] ([facility]) [address] [facility] [place], [address], 02/10/2024 09:15:10 02/09/20 24 02/10/2024 LIPID PANEL VLDL cholesterol lynn 38 mg/dL 5-40 Not Available [facility] ([facility]) [address] [facility] [place], [address], 02/10/2024 09:15:10 02/09/20 24 02/10/2024 LIPID PANEL LDL chol calc ([facility]) 120 mg/dL 0-99 above high normal Not Available [facility] ([facility]) [address] [facility] [place], [address], 02/10/2024 09:15:10 02/09/20 24 02/10/2024 T4, FREE T4,free(dire ct) 0.86 NG/dL 0.82-1 .77 Not Available [facility] ([facility]) [address] [facility] [place], [address], 02/10/2024 09:15:11 02/09/20 24 02/10/2024 COMP. METAB OLIC PANEL (14) glucose 83 mg/dL 70-99 Not Available [facility] ([facility]) [address] [place], [address], 02/10/2024 09:15:11 02/09/20 24 02/10/2024 COMP. METAB OLIC PANEL (14) BUN 15 mg/dL 8-27 Not Available [facility] ([facility]) [address] [place], [address], 02/10/2024 09:15:11 02/09/20 24 02/10/2024 COMP. METAB OLIC PANEL (14) creatinine 1.34 mg/dL 0.76-1 .27 above high normal Not Available [facility] ([facility]) [address] [facility], [place], [address], 02/10/2024 09:15:11 02/09/20 24 02/10/2024 COMP. METAB OLIC PANEL (14) eGFR 60 mL/mi n/1.7 3 >59 Not Available [facility] ([facility]) [address] [facility], [place], [address], 02/10/2024 09:15:11 02/09/20 24 02/10/2024 COMP. METAB OLIC PANEL (14) BUN/creatini ne ratio 11 10-24 Not Available [facility] ([facility]) [address] [facility], [place], [address], 02/10/2024 09:15:11 02/09/20 24 02/10/2024 COMP. METAB OLIC PANEL (14) sodium 139 mmol/ L 134-14 4 Not Available [facility] ([facility]) [address] [facility], [place], [address], 02/10/2024 09:15:11 02/09/20 24 02/10/2024 COMP. METAB OLIC PANEL (14) potassium 4.4 mmol/ L 3.5-5. 2 Not Available [facility] ([facility]) [address] [facility], [place], [address], 02/10/2024 09:15:11 02/09/20 24 02/10/2024 COMP. METAB OLIC PANEL (14) chloride 102 mmol/ L 96-106 Not Available [facility] ([facility]) [address] [facility], [place], [address], 02/10/2024 09:15:11 02/09/20 24 02/10/2024 COMP. METAB OLIC PANEL (14) carbon dioxide, total 23 mmol/ L 20-29 Not Available [facility] ([facility]) [address], [place], [address], 02/10/2024 09:15:11 02/09/20 24 02/10/2024 COMP. METAB OLIC PANEL (14) calcium 9.7 mg/dL 8.6-10 .2 Not Available [facility] ([facility]) [address], [place], [address], 02/10/2024 09:15:11 02/09/20 24 02/10/2024 COMP. METAB OLIC PANEL (14) protein, total 6.9 g/dL 6.0-8. 5 Not Available [facility] ([facility]) [address], [place], [address], 02/10/2024 09:15:11 02/09/20 24 02/10/2024 COMP. METAB OLIC PANEL (14) albumin 4.1 g/dL 3.9-4. 9 Not Available [facility] ([facility]) [address] [place], [address], 02/10/2024 09:15:11 02/09/20 24 02/10/2024 COMP. METAB OLIC PANEL (14) globulin, total 2.8 g/dL 1.5-4. 5 Not Available [facility] ([facility] [address] [place], [address], 02/10/2024 09:15:11 02/09/20 24 02/10/2024 COMP. METAB OLIC PANEL (14) bilirubin, total <0.2 mg/dL 0.0-1. 2 Not Available [facility] ([facility]) [address] [place], [address], 02/10/2024 09:15:11 02/09/20 24 02/10/2024 COMP. METAB OLIC PANEL (14) alkaline phosphatase 93 IU/L 44-121 Not Available [facility] ([facility]) [address] [facility], [place], [address], 02/10/2024 09:15:11 02/09/20 24 02/10/2024 COMP. METAB OLIC PANEL (14) AST (SGOT) 20 IU/L 0-40 Not Available [facility] ([facility]) [address] [facility], [place], [address], 02/10/2024 09:15:11 02/09/20 24 02/10/2024 COMP. METAB OLIC PANEL (14) ALT (SGPT) 21 IU/L 0-44 Not Available [facility] ([facility]) [address] [facility], [place], [address], 02/10/2024 09:15:11 02/09/20 24 02/10/2024 HEMOG LOBIN A1C hemoglobin A1C 5.9 % 4.8-5. 6 above high normal Predi abete s: 5.7 - 6.4 Diabe christiano: >6.4 Glyce yessenia contr ol for adult s with diabe christiano: <7.0 Not Available [facility] ([facility]) [address] [facility], [place], [address], 02/10/2024 09:15:12 02/09/20 24 02/10/2024 TSH TSH 1.670 uIU/m L 0.450- 4.500 Not Available [facility] ([facility]) [address] [place], [address], 02/10/2024 09:15:13 02/09/20 24 02/10/2024 CBC WITH DIFFE RENTI AL/PL ATELE T WBC 6.5 x10e3 /uL 3.4-10 .8 Not Available [facility] ([facility]) [address] [facility], [place], [address], 02/10/2024 09:15:14 02/09/20 24 02/10/2024 CBC WITH DIFFE RENTI AL/PL ATELE T RBC 5.37 x10e6 /uL 4.14-5 .80 Not Available [facility] ([facility]) [address] [facility], [place], [address], 02/10/2024 09:15:14 02/09/20 24 02/10/2024 CBC WITH DIFFE RENTI AL/PL ATELE T hemoglobin 15.3 g/dL 13.0-1 7.7 Not Available [facility] ([facility]) [address] [facility], [place], [address], 02/10/2024 09:15:14 02/09/20 24 02/10/2024 CBC WITH DIFFE RENTI AL/PL ATELE T hematocrit 47.8 % 37.5-5 1.0 Not Available [facility] ([facility]) [address] [facility], [place], [address], 02/10/2024 09:15:14 02/09/20 24 02/10/2024 CBC WITH DIFFE RENTI AL/PL ATELE T MCV 89 fL 79-97 Not Available [facility] ([facility]) [address] [place], [address], 02/10/2024 09:15:14 02/09/20 24 02/10/2024 CBC WITH DIFFE RENTI AL/PL ATELE T MCH 28.5 pg 26.6-3 3.0 Not Available [facility] ([facility]) [address] [place], [address], 02/10/2024 09:15:14 02/09/20 24 02/10/2024 CBC WITH DIFFE RENTI AL/PL ATELE T MCHC 32.0 g/dL 31.5-3 5.7 Not Available [facility] ([facility]) [address] [place], [address], 02/10/2024 09:15:14 02/09/20 24 02/10/2024 CBC WITH DIFFE RENTI AL/PL ATELE T RDW 12.9 % 11.6-1 5.4 Not Available [facility] ([facility]) [address] [facility], [place], [address], 02/10/2024 09:15:14 02/09/20 24 02/10/2024 CBC WITH DIFFE RENTI AL/PL ATELE T platelets 322 x10e3 /uL 150-45 0 Not Available [facility] ([facility]) [address] [facility], [place], [address], 02/10/2024 09:15:14 02/09/20 24 02/10/2024 CBC WITH DIFFE RENTI AL/PL ATELE T neutrophils 48 % notest ab. Not Available [facility] ([facility]) [address] [facility], [place], [address], 02/10/2024 09:15:14 02/09/20 24 02/10/2024 CBC WITH DIFFE RENTI AL/PL ATELE T lymphs 37 % notest ab. Not Available [facility] ([facility]) [address] [facility], [place], [address], 02/10/2024 09:15:14 02/09/20 24 02/10/2024 CBC WITH DIFFE RENTI AL/PL ATELE T monocytes 11 % notest ab. Not Available [facility] ([facility]) [address] [facility], [place], [address], 02/10/2024 09:15:14 02/09/20 24 02/10/2024 CBC WITH DIFFE RENTI AL/PL ATELE T eos 3 % notest ab. Not Available [facility] ([facility]) [address] [facility], [place], [address], 02/10/2024 09:15:14 02/09/20 24 02/10/2024 CBC WITH DIFFE RENTI AL/PL ATELE T basos 1 % notest ab. Not Available [facility] ([facility]) [address] [facility], [place], [address], 02/10/2024 09:15:14 02/09/20 24 02/10/2024 CBC WITH DIFFE RENTI AL/PL ATELE T neutrophils (absolute) 3.1 x10e3 /uL 1.4-7. 0 Not Available [facility] ([facility]) [address] [facility], [place], [address], 02/10/2024 09:15:14 02/09/20 24 02/10/2024 CBC WITH DIFFE RENTI AL/PL ATELE T lymphs (absolute) 2.4 x10e3 /uL 0.7-3. 1 Not Available [facility] ([facility]) [address] [facility], [place], [address], 02/10/2024 09:15:14 02/09/20 24 02/10/2024 CBC WITH DIFFE RENTI AL/PL ATELE T monocytes(ab solute) 0.7 x10e3 /uL 0.1-0. 9 Not Available [facility] ([facility]) [address] [facility], [place], [address], 02/10/2024 09:15:14 02/09/20 24 02/10/2024 CBC WITH DIFFE RENTI AL/PL ATELE T eos (absolute) 0.2 x10e3 /uL 0.0-0. 4 Not Available [facility] ([facility]) [address] [facility], [place], [address], 02/10/2024 09:15:14 02/09/20 24 02/10/2024 CBC WITH DIFFE RENTI AL/PL ATELE T baso (absolute) 0.1 x10e3 /uL 0.0-0. 2 Not Available [facility] ([facility]) [address] [facility], [place], [address], 02/10/2024 09:15:14 02/09/20 24 02/10/2024 CBC WITH DIFFE RENTI AL/PL ATELE T immature granulocytes 0 % notest ab. Not Available [facility] ([facility]) [address] [facility], [place], [address], 02/10/2024 09:15:14 02/09/20 24 02/10/2024 CBC WITH DIFFE RENTI AL/PL ATELE T immature grans (abs) 0.0 x10e3 /uL 0.0-0. 1 Not Available [facility] ([facility]) [address] [facility], [place], [address], 02/10/2024 09:15:14 02/09/20 24 02/10/2024 PROST ATE-S [...] t be inter prete d as absol sheldon evide nce of the prese nce or absen ce of an ramos se. Not Available [facility] ([facility]) [address] [facility], [place], [address], 02/10/2024 09:15:15 02/09/20 24 02/10/2024 TRIIO DOTHY WADE E (T3), FREE triiodothyro nine (T3), free 3.2 pg/mL 2.0-4. 4 Not Available [facility] ([facility]) [address] [facility], [place], [address], 02/10/2024 09:15:15 06/14/20 24 06/15/2024 LIPID PANEL cholesterol, total 188 mg/dL 100-19 9 Not Available [facility] ([facility]) [address] [place], [address], 06/15/2024 09:13:52 06/14/20 24 06/15/2024 LIPID PANEL triglyceride s 140 mg/dL 0-149 Not Available [facility] ([facility]) [address] [place], [address], 06/15/2024 09:13:52 06/14/20 24 06/15/2024 LIPID PANEL HDL cholesterol 44 mg/dL >39 Not Available [facility] ([facility]) [address] [place], [address], 06/15/2024 09:13:52 06/14/20 24 06/15/2024 LIPID PANEL VLDL cholesterol lynn 25 mg/dL 5-40 Not Available [facility] ([facility]) [address] [place], [address], 06/15/2024 09:13:52 06/14/20 24 06/15/2024 LIPID PANEL LDL chol calc ([facility]) 119 mg/dL 0-99 above high normal Not Available [facility] ([facility]) [address] [place], [address], 06/15/2024 09:13:52 06/14/20 24 06/15/2024 T4, FREE T4,free(dire ct) 0.84 NG/dL 0.82-1 .77 Not Available [facility] ([facility]) [address] [place], [address], 06/15/2024 09:13:53 06/14/20 24 06/15/2024 COMP. METAB OLIC PANEL (14) glucose 101 mg/dL 70-99 above high normal Not Available [facility] ([facility]) [address] [place], [address], 06/15/2024 09:13:55 06/14/20 24 06/15/2024 COMP. METAB OLIC PANEL (14) BUN 14 mg/dL 8-27 Not Available [facility] ([facility]) [address] [facility], [place], [address], 06/15/2024 09:13:55 06/14/20 24 06/15/2024 COMP. METAB OLIC PANEL (14) creatinine 1.16 mg/dL 0.76-1 .27 Not Available [facility] ([facility]) [address] [facility], [place], [address], 06/15/2024 09:13:55 06/14/20 24 06/15/2024 COMP. METAB OLIC PANEL (14) eGFR 72 mL/mi n/1.7 3 >59 Not Available [facility] ([facility]) [address] [facility], [place], [address], 06/15/2024 09:13:55 06/14/20 24 06/15/2024 COMP. METAB OLIC PANEL (14) BUN/creatini ne ratio 12 - Not Available [facility] ([facility]) [address] [facility], [place], [address], 06/15/2024 09:13:55 06/14/20 24 06/15/2024 COMP. METAB OLIC PANEL (14) sodium 139 mmol/ L 134-14 4 Not Available [facility] ([facility]) [address] [facility], [place], [address], 06/15/2024 09:13:55 06/14/20 24 06/15/2024 COMP. METAB OLIC PANEL (14) potassium 4.3 mmol/ L 3.5-5. 2 Not Available [facility] ([facility]) [address] [facility], [place], [address], 06/15/2024 09:13:55 06/14/20 24 06/15/2024 COMP. METAB OLIC PANEL (14) chloride 104 mmol/ L 96-106 Not Available [facility] ([facility]) [address] [place], [address], 06/15/2024 09:13:55 06/14/20 24 06/15/2024 COMP. METAB OLIC PANEL (14) carbon dioxide, total 20 mmol/ L 20-29 Not Available [facility] ([facility]) [address] [place], [address], 06/15/2024 09:13:55 06/14/20 24 06/15/2024 COMP. METAB OLIC PANEL (14) calcium 9.0 mg/dL 8.6-10 .2 Not Available [facility] ([facility]) [address] [place], [address], 06/15/2024 09:13:55 06/14/20 24 06/15/2024 COMP. METAB OLIC PANEL (14) protein, total 6.6 g/dL 6.0-8. 5 Not Available [facility] ([facility]) [address] [facility] [place], [address], 06/15/2024 09:13:55 06/14/20 24 06/15/2024 COMP. METAB OLIC PANEL (14) albumin 4.1 g/dL 3.9-4. 9 Not Available [facility] ([facility]) [address] [facility] [place], [address], 06/15/2024 09:13:55 06/14/20 24 06/15/2024 COMP. METAB OLIC PANEL (14) globulin, total 2.5 g/dL 1.5-4. 5 Not Available [facility] ([facility] [address] [place], [address], 06/15/2024 09:13:55 06/14/20 24 06/15/2024 COMP. METAB OLIC PANEL (14) bilirubin, total 0.3 mg/dL 0.0-1. 2 Not Available [facility] ([facility]) [address] [facility], [place], [address], 06/15/2024 09:13:55 06/14/20 24 06/15/2024 COMP. METAB OLIC PANEL (14) alkaline phosphatase 90 IU/L 44-121 Not Available [facility] ([facility]) [address] [facility], [place], [address], 06/15/2024 09:13:55 06/14/20 24 06/15/2024 COMP. METAB OLIC PANEL (14) AST (SGOT) 30 IU/L 0-40 Not Available [facility] ([facility]) [address] [facility], [place], [address], 06/15/2024 09:13:55 06/14/20 24 06/15/2024 COMP. METAB OLIC PANEL (14) ALT (SGPT) 33 IU/L 0-44 Not Available [facility] ([facility]) [address] [facility], [place], [address], 06/15/2024 09:13:55 06/14/20 24 06/15/2024 TSH TSH 1.480 uIU/m L 0.450- 4.500 Not Available [facility] ([facility]) [address] [facility] [place], [address], 06/15/2024 09:13:56 06/14/20 24 06/15/2024 CBC WITH DIFFE RENTI AL/PL ATELE T WBC 6.3 x10e3 /uL 3.4-10 .8 Not Available [facility] ([facility]) [address] [facility] [place], [address], 06/15/2024 09:13:57 06/14/20 24 06/15/2024 CBC WITH DIFFE RENTI AL/PL ATELE T RBC 5.45 x10e6 /uL 4.14-5 .80 Not Available [facility] ([facility]) [address] [place], [address], 06/15/2024 09:13:57 06/14/20 24 06/15/2024 CBC WITH DIFFE RENTI AL/PL ATELE T hemoglobin 15.2 g/dL 13.0-1 7.7 Not Available [facility] ([facility]) [address] [facility], [place], [address], 06/15/2024 09:13:57 06/14/20 24 06/15/2024 CBC WITH DIFFE RENTI AL/PL ATELE T hematocrit 47.1 % 37.5-5 1.0 Not Available [facility] ([facility]) [address] [place], [address], 06/15/2024 09:13:57 06/14/20 24 06/15/2024 CBC WITH DIFFE RENTI AL/PL ATELE T MCV 86 fL 79-97 Not Available [facility] ([facility]) [address] [facility], [place], [address], 06/15/2024 09:13:57 06/14/2006/15/2024 CBC WITH DIFFE RENTI AL/PL ATELE T MCH 27.9 pg 26.6-3 3.0 Not Available [facility] ([facility]) [address] [place], [address], 06/15/2024 09:13:57 06/14/20 24 06/15/2024 CBC WITH DIFFE RENTI AL/PL ATELE T MCHC 32.3 g/dL 31.5-3 5.7 Not Available [facility] ([facility]) [address] [place], [address], 06/15/2024 09:13:57 06/14/20 24 06/15/2024 CBC WITH DIFFE RENTI AL/PL ATELE T RDW 13.7 % 11.6-1 5.4 Not Available [facility] ([facility]) [address] [place], [address], 06/15/2024 09:13:57 06/14/20 24 06/15/2024 CBC WITH DIFFE RENTI AL/PL ATELE T platelets 292 x10e3 /uL 150-45 0 Not Available [facility] ([facility]) [address] [facility], [place], [address], 06/15/2024 09:13:57 06/14/20 24 06/15/2024 CBC WITH DIFFE RENTI AL/PL ATELE T neutrophils 57 % notest ab. Not Available [facility] ([facility]) [address] [facility], [place], [address], 06/15/2024 09:13:57 06/14/20 24 06/15/2024 CBC WITH DIFFE RENTI AL/PL ATELE T lymphs 29 % notest ab. Not Available [facility] ([facility]) [address] [facility], [place], [address], 06/15/2024 09:13:57 06/14/20 24 06/15/2024 CBC WITH DIFFE RENTI AL/PL ATELE T monocytes 11 % notest ab. Not Available [facility] ([facility]) [address] [facility], [place], [address], 06/15/2024 09:13:57 06/14/20 24 06/15/2024 CBC WITH DIFFE RENTI AL/PL ATELE T eos 2 % notest ab. Not Available [facility] ([facility]) [address] [facility], [place], [address], 06/15/2024 09:13:57 06/14/20 24 06/15/2024 CBC WITH DIFFE RENTI AL/PL ATELE T basos 1 % notest ab. Not Available [facility] ([facility]) [address] [facility], [place], [address], 06/15/2024 09:13:57 12/10/06/15/2024 CBC WITH DIFFE RENTI AL/PL ATELE T neutrophils (absolute) 3.6 x10e3 /uL 1.4-7. 0 Not Available [facility] ([facility]) [address] [facility], [place], [address], 06/15/2024 09:13:57 06/14/20 24 06/15/2024 CBC WITH DIFFE RENTI AL/PL ATELE T lymphs (absolute) 1.8 x10e3 /uL 0.7-3. 1 Not Available [facility] ([facility]) [address] [facility], [place], [address], 06/15/2024 09:13:57 06/14/20 24 06/15/2024 CBC WITH DIFFE RENTI AL/PL ATELE T monocytes(ab solute) 0.7 x10e3 /uL 0.1-0. 9 Not Available [facility] ([facility]) [address] [facility], [place], [address], 06/15/2024 09:13:57 06/14/20 24 06/15/2024 CBC WITH DIFFE RENTI AL/PL ATELE T eos (absolute) 0.1 x10e3 /uL 0.0-0. 4 Not Available [facility] ([facility]) [address] [facility], [place], [address], 06/15/2024 09:13:57 06/14/20 24 06/15/2024 CBC WITH DIFFE RENTI AL/PL ATELE T baso (absolute) 0.1 x10e3 /uL 0.0-0. 2 Not Available [facility] ([facility]) [address] [place], [address], 06/15/2024 09:13:57 06/14/20 24 06/15/2024 CBC WITH DIFFE RENTI AL/PL ATELE T immature granulocytes 0 % notest ab. Not Available [facility] ([facility]) [address] [place], [address], 06/15/2024 09:13:57 06/14/20 24 06/15/2024 CBC WITH DIFFE RENTI AL/PL ATELE T immature grans (abs) 0.0 x10e3 /uL 0.0-0. 1 Not Available [facility] ([facility]) [address] [facility], [place], [address], 06/15/2024 09:13:57 06/14/20 24 06/15/2024 TRIIO DOTHY WADE E (T3), FREE triiodothyro nine (T3), free 3.8 pg/mL 2.0-4. 4 Not Available [facility] ([facility]) [address] [facility], [place], [address], 06/15/2024 09:13:58 06/20/20 24 06/20/2024 PFT, compl ete No observ ation record ed. [facility] [address] [facility] [address], [place], [address], 06/20/2024 23:16:34 08/03/19 25 08/03/2024 LDCT, chest , for lung cance r scree margy No observ ation record ed. [address] [facility], [place], [address], 08/05/2024 17:15:57 08/05/19 25 07/26/2024 home sleep study No observ ation record ed. [address], [place], [address], 08/09/2024 10:15:14 08/08/19 25 07/26/2024 home sleep study No observ ation record ed. [facility] [address] [facility], [place], [address], 08/09/2024 10:15:15 08/10/19 25 08/10/2024 NM, myoca rdial perfu nancy scan No observ ation record ed. [facility] [address], [place], [address], 08/12/2024 11:14:34 Result Notes None recorded. Problems Name Problem SNOMED Code Status Onset Date Resolution Date Notes Provider Name and Address Organization Details Recorded Time Essential hypertension 22185796 Active 2023 Faith Stone LPN null, [place] - [facility] 4 10:13:59 Epilepsy 14804071 Active 2023 Faith Stone LPN [place], [place] [facility] 4 10:14:14 Obstructive sleep apnea syndrome 67011353 Active 2023 Prasanth Dockery MD Attn: Eneida cabrera,[address] [place], [address], [place] [facility] 4 11:12:29 Gastroesophage al reflux disease without esophagitis 094249066 Active 2023 Prasanth Dockery MD Attn: Eneida cabrera,[address] [place], [address], [place] [facility] 4 11:12:38 Skin lesion 53103688 Active 2023 Stewart Rolon MA null, [place] [facility] 4 12:23:37 Body mass index 40+ - severely obese 502186525 Active 2023 Stewart Rolon [place], [place] [facility] 4 12:23:38 Morbid obesity 459427228 Active 2023 Stewart Rol[place] [facility] 4 12:23:39 Dyspnea 393400810 Active 2023 Stewart Rol[place] [facility] 4 12:23:43 Erectile dysfunction 646012265 Active 2023 Stewart Rol[place] [facility] 4 12:23:46 Sleep disorder 64939666 Active 2023 Stewart Rol[place] [facility] 4 12:23:48 Nicotine dependence 40273552 Active 2023 Stewart Rolon MA null, [place] - [facility] 12:23:50 Problem Notes None recorded. Procedures Surgical History Date Name Laterality Status Provider Name and Address Organization Details Recorded Time procedure on brain completed Itzel Young MA [facility] 02/09/2024 15:37:58 Imaging Results Imaging Date Name Status LastModified by Organiz ation Details LastModified Time 06/20/2024 PFT, complete completed [facility] [address] [facility] [address], [place], [address], 06/20/2024 23:16:34 08/03/2024 LDCT, chest, for lung cancer screening completed [address], [address], 08/05/2024 17:15:57 07/26/2024 home sleep study completed [address], [address], 08/09/2024 10:15:14 07/26/2024 home sleep study completed [facility] [address] [facility], [place], [address], 08/09/2024 10:15:15 08/10/2024 NM, myocardial perfusion scan completed [facility] [address] [facility], [place], [address], 08/12/2024 11:14:34 Procedure Notes None recorded. Medical Equipment None Reported. Allergies Allergen ID Allergen Name Allergen Category Reaction Reaction Severity Criticality Documentation Date Start Date Code Code System Note Provider Name and Address Organization Details Recorded Time 399579 lisinopri l medicatio n swelling mild low 02/09/2024 72174 RxNorm Not Available Not Available Not Available Medications Name Sig Start Date Stop Date Status Note LastModified by Organization Details LastModified Time celecoxib 200 mg capsule 02/09 completed Not Available Not Available Not Available atorvasta tin 10 mg tablet TAKE 1 TABLET BY MOUTH EVERY DAY 01/06/ 2025 active Not Available Not Available Not Avai [...] every 4 hours by inhalati on route. 2023 active Not Available Not Available Not Avai [...] t Available Vitals Date Recorded Body weight Body mass index (BMI) Body height Heart rate Oxygen saturation Oxygen saturation in Arterial blood by Pulse oximetry Systolic blood pressure Diastolic blood pressure Provider Name and Address Organization Details Last Updated DateTime 4 884031. 57 g 42.3 kg/m2 175.26 cm 78 /min 97 % 97 % 134 mm[Hg] 72 mm[Hg] Itzel Young MA [facility] 4 15:42:09 Date Recorded Body height Body mass index (BMI) Body weight Heart rate Oxygen saturation Oxygen saturation in Arterial blood by Pulse oximetry Systolic blood pressure Diastolic blood pressure Provider Name and Address Organization Details Last Updated DateTime 4 175.26 cm 44.6 kg/m2 315862. 9 g 85 /min 96 % 96 % 124 mm[Hg] 86 mm[Hg] Carlee Caputo MA [facility] 4 10:21:39 Social History Question Answer Notes LastModified by Organizat ion Details LastModified Time Tobacco Smoking Status Former Smoker Stopped October 2023 Stewart Rolon MA [facility] 06/14/2024 11:29:02 What Is Your [...] SNOMED-CT Code Diagnosis ICD10 Code Diagnosis Note [id number] MD Georgina Norman (Adult Med) [address] [place] [address] 02/09/2024 14:52:13 02/09/2024 16:38:33 Essential hypertension 12071223 I10 Obesity 762986587 E66.8 Diabetes m ellitus screening 569397511 Z13.1 Screening for malignant neoplasm of prostate 753133483 Z12.5 [id number] [address] MD [facility] ([facility]) [address] [place] [address] 06/14/2024 09:48:05 06/14/2024 11:48:14 Body mass index 40+ - severely obese 068356711 Z68.41 Morbid obesity 851441652 E66.01 Obstructiv e sleep apnea syndrome 00772705 G47.33 Gastroesop hageal reflux disease without esophagitis 659162679 K21.9 Skin lesion 52911753 L98 .9 Dyspnea 019503239 R06.00 Essential hypertension 67502135 I10 Erectile dysfunction 860 683036 F52.21 Sleep disorder 70071353 G47.9 Nicotine dependence 5629 4008 Z87.891 History of seizure 57391 07413 Z86.69 Prediabetes 517763886 R7 3.03 Health Concerns Section Related Observation LastModified by Organization Detai ls LastModified Time None Recorded Concern Status LastModified by Organization Details LastModified Time None Recorded Advance Directives Directive None Recorded Payers Encounter Date Sequence Insurance Name Policy Number Policy Brian Covered Member ID Brian Member ID Guarantor Name 02/09/2024 1 [facility] (MEDICARE REPLACEMENT/A DVANTAGE - HMO) [id number] Keanu Pleitez [id number] Keanu Pleitez 06/14/2024 1 [facility] (MEDICARE REPLACEMENT/A DVANTAGE - HMO) [id number] Keanu Pleitez [id number] Keanu Pleitez Notes Date Note Type Note [...] vape we will 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
--- NOTE | 2024-09-08 15:43 | WPDSLEEPSTUD ---
Sleep Study Date of Study: 08/18/24 Ordering Provider: Greg DockeryMD Interpreting Physician: Naya Knox MD Sleep Study Type: CPAP Titration Height: 1.75 m Weight: 139.706 kg Body Mass Index: 45.4 Neck Circumference (inches): 19.25 [place]: 24 Reason for Sleep Study Hypersomnolence;07/26/2024 home sleep test using WatchPat with extremely severe obstructive sleep apnea, the apnea-hypopnea index is 78.6 with a central apnea-hypopnea index 36.8, 9.3% of the sleep time showed Nixon-Redding respirations and the patient desaturated to 80%. He returns for a CPAP titration. Sleep History Keanu Pleitez is a 64-year-old man who had a home sleep test due to hypersomnolence. He did not feel of the sleep questionnaire at the time of his home sleep test nor on the night of the titration. His office note from 06/14/2024 indicates morbid obesity, erectile dysfunction, nicotine dependence, obstructive sleep apnea, dyspnea, gastroesophageal reflux disease, epilepsy, pre diabetes and hypertension. He has a 45 year history of smoking tobacco. He had brain surgery. [facility] Past Medical History Medical History Dyslipidemia Seizure disorder Hypertension Family History Family History Mother Diabetes mellitus Father Malignant neoplasm of prostate Social History Social History Smoking packs per day: 0.75 Smoking cigarettes per day: 15.0 Years smoked: 25 Smoking pack-years: 18.75 Smoking status: Current every day smoker Alcohol intake: current Medications Medications: MEDICATION LIST FROM OFFICE VISIT 06/14/2024 DR. GREG DOCKERY Albuterol sulfate inhaler 90 mcg per puff Atorvastatin 10 mg a day Hydrochlorothiazide 25 mg a day Lamotrigine 100 mg daily Metoprolol succinate ER 50 mg a day Naprosyn 500 mg Ozempic 0.25 mg or 0.5 mg (2 mg/1.5 mill) subcutaneous pen Injector' inject 0.25 mg weekly for 4 weeks, then increase to 0.5 mg weekly for 4 weeks Valacyclovir 1 gram Sleep Procedure A full CPAP polysomnogram using the [employer] multi-channel system recorded the standard physiologic parameters including EEG, EOG, submentalis EMG, anterior tibialis EMG, EKG, body position, nasal and oral airflow using nasal pressure sensor and thermistor. Respiratory parameters of chest and abdominal movements were recorded with Respiratory Inductance Plethysmography belts. Oxygen saturation was recorded by pulse oximetry. Video monitoring was also performed. Sleep stages, periodic limb movements, and EEG arousals were scored in 30 second epochs according to the criteria of the AASM Scoring Manual. The Apnea-Hypopnea Index was calculated using [facility] guidelines for definition of hypopnea while scoring respiratory events. The patient was started on CPAP using a Visible [employer]asures N30i nasal mask and CPAP 5 cm, titrated to 7 cm, 9 cm, and final pressure 11 cm. At CPAP 11 cm, the patient spent 89.5 minutes in bed, 37.5 minutes awake, 35 minutes in non-REM and 17 minutes in REM. Sleep efficiency was 58.1%. The residual apnea-hypopnea index was 1.2. The lowest saturation was 92%. The patient had REM at all CPAP pressures during the night. Sleep Architecture The total recording time was 516.8 minutes. The total sleep time was 418.0 minutes. Sleep latency was 3.8 minutes. REM latency was 5.5 minutes. Sleep efficiency was 80.9%. The patient had 34 awakenings for an awakening index of 4.9. Wake after Sleep Onset time was 95.0 minutes. The patient spent 26.0 minutes, 6.2% of total sleep time in Stage N1. The patient spent 233.0 minutes, 55.7% in Stage N2. The patient spent 3.5 minutes, 0.8% in Stage N3. The patient spent 155.5 minutes, 37.2% in Stage REM. Respiratory Analysis The patient had 20 hypopneas, 1 obstructive apneas, no mixed apneas, and 2 central apneas for an overall Apnea Hypopnea Index of 3.3 events per hour. The REM Apnea Hypopnea Index was 5.0. The NREM Apnea Hypopnea Index was 2.3. The patient had a Central Apnea Hypopnea Index of 0.3. There were no Respiratory Effort Related Arousals. The Respiratory Disturbance Index is 4.6 events per hour. There was no evidence of Nixon-Redding Respirations. Arousals There were 66 total arousals for an arousal index of 9.5. There were 17 spontaneous arousals for an index of 2.4. There were 3 arousals due to respiratory events for an index of 0.4. There were 24 arousals due to periodic limb movements for an index of 3.4. There were 22 arousals due to isolated limb movements for an index of 3.2. Periodic Limb Movements The patient had 51 isolated limb movements with an index of 7.3. The patient had 453 periodic limb movements with index of 65.0. Patient had a total of 504 limb movements with a total limb movement index of 72.3. Oximetry Data The patient had an average oxygen saturation of 95.2% in sleep with a minimum oxygen saturation of 84% and a maximum oxygen saturation of 99%. The patient had 28 oxygen desaturations that were 4% or greater resulting in an Oxygen Desaturation Index of 4.0. The patient spent 2 minutes, 0.4% of total sleep time with an oxygen saturation below 88%. Snoring Profile Snoring was mild to moderate, eliminated at CPAP 11 cm. Cardiac Profile The EKG showed normal sinus rhythm. The patient had an average pulse rate of 74.8 bpm with a minimum pulse rate of 56 bpm and a maximum pulse rate of 93 bpm. Few PVCs were noted. Trigeminy was noted on epochs 213-214. No arrhythmias. EEG Profile EEG was unremarkable, no evidence of seizures. Assessment and Plan Assessment and Plan (1) Obstructive sleep apnea: Code(s): G47.33 - Obstructive sleep apnea (adult) (pediatric) Status: Acute Assessment and Plan: This full night CPAP titration on 08/18/2024 shows an excellent response to CPAP 11 cm using a SW (small wide) ResMed N30i nasal mask and heated humidity. Supine REM occurred at the optimal pressure. The residual apnea-hypopnea index was 1.2 with a minimum saturation 92%. There were no significant central apneas during this study. The patient should be prescribed this ResMed equipment as well as tubing, filters and reservoir. This should be used with all episodes of sleep. Compliance should be reviewed within 31-90 days of starting therapy for usage greater than 4 hours per night greater than 70% of the nights. The patient should be asked about symptoms such as excessive daytime sleepiness, quality of sleep, decreased nocturia, increased mental functioning such as memory, mood, and concentration. His baseline apnea-hypopnea index on the home sleep test was 78.6, the central apnea index was 36.8 and the patient had 9.3% the study showing Nixon-Redding breathing. He had essentially no central apneas and no Nixon-Redding breathing on this test. PAP therapy seemed to resolve his central apneas. He had tremendous numbers of limb movements, his. Next limb movement index was 65 and the total limb movement index was 72.3 however he did not have significant arousals due to the limb movements. The limb movements may be CPAP kick, a response to the initial use of positive airway pressure. He did not complete a sleep survey so it is unknown whether or not his leg movements bother him normally at home. I would ask about this on his compliance visits. I would ask him if he has uncomfortable feelings in his legs in the evening hours, if the sensations improve with walking or massage, if uncomfortable feelings make it difficult for him to fall asleep and if he notices that he kicks at night. If he has a bed partner, ask if the bed partner complains about his kicking. If he has positive answers to these questions, check a ferritin level. Ferritin level is indicated to exclude iron deficiency anemia as a contributing factor. Ferritin should be 75 ng/mL or greater. If ferritin is below this, iron supplementation should be given to achieve ferritin of 75 ng/mL. There are nonpharmacologic methods to treat limb movements including daily exercise, stretching calf muscles before bed, avoiding excessive amounts of caffeine and alcohol, vitamin B supplementation, magnesium lotion massaged into legs before bed, and use of a weighted blanket. If he does not have uncomfortable feelings in his legs in the evenings, if he does not kick at night, ignore the leg movements on this titration. I would chalk up these leg movements on 08/18/24 to CPAP [facility]. BMI is 45. Weight management is advised. Clinical data suggests that weight loss of 10% can reduce the severity of respiratory events and snoring and improve AHI by as much as 25%. Data The data obtained during this sleep study is adequate for interpretation. Certification This sleep study has been reviewed by a board certified sleep medicine physician.
[2024-09-08 16:17] VITALS: BMI 45.4
== END 2024-08-19 07:09 | disposition home or self-care (01) ==
PROVIDERS: PCP Internal Medicine; Visit Provider Internal Medicine
DX: G47.33 Obstructive sleep apnea (adult) (pediatric) (principal)
CPT/HCPCS: 95811

== ENCOUNTER 2024-10-28 08:18 | Outpatient (CLI) | payer MEDICARE, SELFPAY ==
--- NOTE | ~2024-10-28 | MR_ITS ---
MRI of the brain Clinical History: Disorder of brain Technique: Axial and sagittal T1-weighted images were acquired. These were followed by axial T2-weigh donal, diffusion weighted, gradient, and FLAIR images. Following intravenous administration of 20 cc Pr oHance gadolinium, T1-weighted fat-sat imaging was performed in the axial, sagittal, and coronal plan es. Findings: There is no acute infarct, intracranial hemorrhage, or mass lesion. Chronic left frontal lo be infarct or other encephalomalacia present. There are mild to moderate chronic microvascular ischem ic changes in the periventricular white matter. Ventricles and subarachnoid spaces are unremarkable. Orbits are unremarkable. Paranasal sinuses and m astoid air cells are clear. Major intracranial flow voids appear intact. Sagittal midline structures are intact. No abnormal postcontrast enhancement identified. IMPRESSION: No acute abnormality. Chronic left frontal lobe infarct and mild to moderate background chronic microvascular ischemic ruth ge. Reviewed, dictated and finalized at location . IMPRESSION: No acute abnormality. Chronic left frontal lobe infarct and mild to moderate background chronic micro vascular ischemic change.
--- OUTSIDE RECORDS SUMMARY | 2024-10-28 08:26 | XMS_ITS | Clinical Summary ---
Author Organization [facility] Address [address] [place] [address] Phone Care Team Providers Care Sales Agent Casualty Insurance Name Role Phone Greg Dockery MD Primary Care Provider [phone] Medications atorvastatin (LIPITOR) 10 MG Tablet Take 10 mg by mouth daily. 09/28/2024 Active lamoTRIgine (LaMICtal) 100 MG Tablet Take 100 mg by mouth daily. 08/19/2024 Active hydroCHLOROthiaz janette 25 MG Tablet Take 25 mg by mouth daily. Active metoprolol Succinate (TOPROL-XL) 50 MG TABLET SR 24 HR Take 50 mg by mouth daily. 08/19/2024 Active valACYclovir (VALTREX) 1 GM Tablet Take 1,000 mg by mouth 2 times daily. Active Social History Tobacco Use Types Packs/Day Years Used Date Smoking Tobacco: Every Day Cigarettes Smokeless Tobacco: Never Tobacco Cessation:Ready to Q uit: Not Asked; Counseling Given: Not Answered Alcohol Use Standard Drinks/Week Comments Yes 0 (1 standard drink = 0.6 oz pur e alcohol) ocassional Sex and Gender Information Value Date Recorded Sex Assigned at Not on file Legal Sex Male 8:25 AM CDT Gender Identity Not on file Sexual Orientation Not on file Plan of Treatment Upcoming Encounters Date Type Department Care Team (Late st Contact Info) Description 02/28/2025 2:00 PM CDT Office Visit [facility] [address] [place] [address] Alirio Montemayor MD [address] [place] [address] Health Maintenance Due Date Last Done Comments Hepatitis C Virus (HCV) Screening 1962 TdaP Immunization 1962 Pneumococcal Immunization (5 0+ years) (1 of 2 - PCV) 1981 Colonoscopy 2007 Colorectal Cancer Screening 2007 Cologuard 2012 Immunochemical Fecal Occult Blood 2012 Zoster Immunization (1 of 2) 2012 PSA Discussion 2017 SARS-COV-2 Immunization (1 - 2023- season) 2024 Influenza Immunization (Seas on Ended) 2025 Respiratory Syncytial Virus (RSV) Immunization (Adult) (1 - 1-dose 75+ series) 2037 Hepatitis B Immunization Aged Out No longer eligible based on patient's age to complete this topic Meningococcal Immunization (ACWY) Aged Out No longer eligible based on patient's age to complete this topic Rotavirus Immunization Aged Out No lo nger eligible based on patient's age to complete this topic Insurance MEDICARE C [facility] on file Care Teams Sales Agent Casualty Insurance Relationship Specialty Start Date End Date Greg Dockery MD [address] [place] [address] PCP - General Internal Medicine 10/11/24
--- OUTSIDE RECORDS SUMMARY | 2024-10-28 08:26 | XMS_ITS | CONTINUITY OF CARE DOCUMENT ---
Author Name mikiealejandrinaezioyvonne Address Unknown Organization [facility] Address [address] [facility] [address] [place] [address] Phone [phone] Care Team Providers Care It Corporate Recruiter Name Role Phone Buddy Hodge MD Unavailable PRASANTH GOLDSMITH MD Unavailable [phone] PRASANTH GOLDSMITH MD Unavailable [phone] PROBLEMS Condition Status Date Provider Notes Wheezing active Brooke Washburn Cardiology examination active Klaus green [employer] SAL[employer] SUPER[employer]OR Shortness of breath active Klaus Acevedo [employer] SUPER[employer]OR Leg edema active Klaus Acevedo [employer] SAL[employer] SUPERVISOR Abnormal EKG active Klaus Acevedo [employer] SAL[employer] SUPERVISOR Hyperlipidemia active Klaus Acevedo [employer] SAL[employer] SUPERVISOR Hypertension active Klaus Acevedo [employer] SAL[employer] SUPERVISOR Obesity active Klaus Acevedo [employer] SAL[employer] SUPERVISOR Seizure active Klaus Acevedo [employer] SAL[employer] SUPERVISOR Body mass index (BMI) 45.0-49.9, adult active Klaus Acevedo [employer] SUPERVISOR VISHAL? active Klaus Acevedo [employer] SAL[employer] SUPER[employer]OR ENCOUNTERS Date Type Provider Location Encounter Diag nosis 07/29 - 07/29 In-person encounter Office Visit [facility] Office Cardiology examinationShortness of breat hLeg edemaAbnormal EKGHyperlipidemiaHypertensionObesitySeizureBody mass index (BMI) 45.0-49.9, adultOSA? VITAL SIGNS Date Observation Value Provider Body Mass Index (Ratio) 45.48 kg/m2 Lito Hodge MD blood pressure, diastolic 99 mm[Hg] Morena ruth Hernandez blood pressure, systolic 133 mm[Hg] Sania muller Hernandez oxygen saturation, oximetry 95 % Mindi Hernandez pulse rate 94 /min Mindi Hernandez respiratory rate E&M 14 /min Mindi Hernandez weight E&M 308 [lb_av] Mindi Hernandez height E&M 69 [in_i] Mindi Hernandez blood pressure, cuff size regular Morena Hernandez ALLERGIES Allergy Name Onset Date Reaction Criticality Status LISINOPRIL High Criticality active HISTORY OF MEDICATION USE Medication Status Instructions Dates Provider Indications Com ments lamotrigine 100 mg tablet active Licha Maldonado RN Toprol XL 50 mg tablet extended release 24 hr active Licha Maldonado RN amlodipine 10 mg tablet active Take 1 t ablet by mouth once daily Mindi Hernandez atorvastatin 10 mg tablet active TAKE 1 TABLET BY MOUTH EVERY DAY Mindi Hernandez hydrochlorothiazide 25 mg tablet active TAKE 1 TABLET BY MOUTH DAILY Mindi Hernandez SOCIAL HISTORY Date Observation Value Provider personal history of marijuana use no Klaus Acevedo NP drug use no Klaus Acevedo NP alcohol use, type Gin Klaus R onkamilay [employer] SALES SUPERVISOR alcohol use, average drinks per day socia l Klaus Acevedo [employer] SAL[employer] SUPERVISOR alcohol use yes Klaus Acevedo NP smoking, year quit 2023 Klaus Acevedo NP smoking history, total pack/day 1/2 Klaus Acevedo [employer] SAL[employer] SUPERVISOR cigarette use yes Klaus benson NP smoking status Former smoker Klaus santamaria NP INSURANCE PROVIDERS Payer name Policy type / Coverage type [place] [employer] party ID AARP MEDICARE ADVANTAGE ([employer] PPO) Other [id number] ADVANCE DIRECTIVES Name Date DISCUSSED - NO [...] imaging due toabnormal baseline changes in EKG Klaus Acevedo NP Date Name Stress Exercise Card iolite Complete Echo HISTORY OF PROCEDURES Procedure Date Procedure Name Provider Procedure Notes S tatus EKG Buddy Hodge MD completed Spirometry Alex More Jr, MD completed FVC / MVV with bronchodilator - 36625 Alex More Jr, MD completed SpO2 w/o 6min walk/titration Alex More Jr, MD completed SVC - 19776 Alex More Jr, MD completed DLCO - 48843 Alex More Jr, MD completed
--- OUTSIDE RECORDS SUMMARY | 2024-10-28 08:26 | XMS_ITS | Data Portability ---
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 Pending results of blood work we will try to get him in on GLP 1 agent there are no contraindications [email or web address] Not available 02/27/2024 17:21:03 06/14/2024 06/14/2024 dermatology. Healthy lifestyle care instructions. LD CT. PFTs. Echo. Blood work. Continue current therapy. Stay off cigarettes. 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 No seizure activity in the last year if not longer follow up with me in 4 months. Dietary strategies discussed for hypertension prediabetes and obesity [email or web address] Not available 06/19/2024 13:57:09 Plan of Treatment Reminders Order Date Submit Date Provider Last Modified By Organization Details Last Modified Time Details Appointments ANY 15 2024 10:00A M Prasanth Dockery MD Not available Not available Not available Lab unlisted lab - T4, free 2023 024 [place], [address], [address], [address], 06/15/2024 09:13:53 T3, free, serum or plasma 2023 024 [facility], [address], [address], [place], [address], 06/15/2024 09:13:59 TSH, ultra-sen sitive, serum 2023 024 [place] [facility], [address], [address], [place], [address], 06/15/2024 09:13:56 lipid panel, serum 2023 024 [place] [facility], [address], [address], [place], [address], 06/15/2024 09:13:52 CBC w/ auto diff 2023 024 [place] [facility], [address], [address], [place], [address], 06/15/2024 09:13:57 CMP, serum or plasma 2023 024 [facility], [address], [address], [place], [address], 06/15/2024 09:13:55 PSA, total, serum or plasma 2023 024 [facility], [address], [address], [place], [address], 02/10/2024 09:15:15 unlisted lab - T4, free 2023 024 [place], [address], [address], [place], [address], 02/10/2024 09:15:11 T3, free, serum or plasma 2023 024 [place] [facility], [address], [address], [place], [address], 02/10/2024 09:15:15 TSH, ultra-sen sitive, serum 2023 024 [place], [address], [address], [place], [address], 02/10/2024 09:15:13 lipid panel, serum 2023 024 [place], [address], [address], [place], [address], 02/10/2024 09:15:10 CMP, serum or plasma 2023 024 [place], [address], [address], [place], [address], 02/10/2024 09:15:12 CBC w/ auto diff 2023 024 [place], [address], [address], [place], [address], 02/10/2024 09:15:14 HbA1c (hemoglob in A1c), blood 2023 024 [place] [facility], [address], [address], [place], [address], 02/10/2024 09:15:12 Referral urologist referral 2023 024 [facility] [address], [address], [place], [address], 10/11/2024 12:20:38 dermatolo gist referral 2023 024 [facility], [address] [place] [address], [address], 10/20/2024 14:22:09 Procedures None recorded. Surgeries None recorded. Imaging home sleep study 2023 024 [facility] ([facility]), [address], [place], [address], 08/05/2024 21:27:35 LDCT, chest, for lung cancer screening 2023 024 [facility] (Imaging), [address], [place], [address], 08/05/2024 09:13:59 US, echocardi ogram 2023 024 [facility], [address], [address], [place], [address], 10/17/2024 12:18:29 PFT, complete 2023 024 [facility], [address], [address], [place], [address], 06/20/2024 16:25:26 Medication Orders None recorded. Patient TargetsNo targets recorded. Patient Instructions Encounter Date Encounter Id Patient Instructions Last Modified By Organization Details Last Modified Time 02/09/2024 [id number] A healthy lifestyle: care instructions [email or web address] Not available 02/09/2024 16:56:33 06/14/2024 [id number] A healthy lifestyle: care instructions [email or web address] Not available 06/14/2024 11:08:02 Reason for Referral Lab Coordinator Referral for S kin lesion Referring Physician: Prasanth Dockery, Internal Medicine, Encounter Date: 06/14/2024 Urologist Referral for Erect ile dysfunction Referring Physician: Prasanth Dockery, Internal Medicine, Encounter Date: 06/14/2024 Results Created Date Observation Date Name Description Value Unit Range Abnormal Flag Note LastModifiedBy Organization Detail LastModifiedTime 02/09/20 24 02/10/2024 LIPID PANEL cholesterol, total 200 mg/dL 100-19 9 above high normal Not Available [facility] ([facility]) [address] [facility], [place], [address], 02/10/2024 09:15:10 02/09/20 24 02/10/2024 LIPID PANEL triglyceride s 218 mg/dL 0-149 above high normal Not Available [facility] ([facility]) [address] [facility], [place], [address], 02/10/2024 09:15:10 02/09/20 24 02/10/2024 LIPID PANEL HDL cholesterol 42 mg/dL >39 Not Available [facility] ([facility]) [address] [facility] [place], [address], 02/10/2024 09:15:10 02/09/20 24 02/10/2024 LIPID PANEL VLDL cholesterol lynn 38 mg/dL 5-40 Not Available [facility] ([facility]) [address] [place], [address], 02/10/2024 09:15:10 02/09/20 24 02/10/2024 LIPID PANEL LDL chol calc ([facility]) 120 mg/dL 0-99 above high normal Not Available [facility] ([facility]) [address] [place], [address], 02/10/2024 09:15:10 02/09/20 24 02/10/2024 T4, FREE T4,free(dire ct) 0.86 NG/dL 0.82-1 .77 Not Available [facility] ([facility]) [address] [place], [address], 02/10/2024 09:15:11 02/09/20 24 02/10/2024 COMP. METAB OLIC PANEL (14) glucose 83 mg/dL 70-99 Not Available [facility] ([facility]) [address] [place], [address], 02/10/2024 09:15:11 02/09/20 24 02/10/2024 COMP. METAB OLIC PANEL (14) BUN 15 mg/dL 8-27 Not Available [facility] ([facility]) [address] [place], [address], 02/10/2024 09:15:11 02/09/20 24 02/10/2024 COMP. METAB OLIC PANEL (14) creatinine 1.34 mg/dL 0.76-1 .27 above high normal Not Available [facility] ([facility]) [address] [facility] [place], [address], 02/10/2024 09:15:11 02/09/20 24 02/10/2024 COMP. METAB OLIC PANEL (14) eGFR 60 mL/mi n/1.7 3 >59 Not Available [facility] ([facility]) [address] [facility] [place], [address], 02/10/2024 09:15:11 02/09/20 24 02/10/2024 COMP. METAB OLIC PANEL (14) BUN/creatini ne ratio 11 -24 Not Available [facility] ([facility]) [address] [facility] [place], [address], 02/10/2024 09:15:11 02/09/20 24 02/10/2024 COMP. METAB OLIC PANEL (14) sodium 139 mmol/ L 134-14 4 Not Available [facility] ([facility]) [address] [facility] [place], [address], 02/10/2024 09:15:11 02/09/20 24 02/10/2024 COMP. METAB OLIC PANEL (14) potassium 4.4 mmol/ L 3.5-5. 2 Not Available [facility] ([facility]) [address] [facility] [place], [address], 02/10/2024 09:15:11 02/09/20 24 02/10/2024 COMP. METAB OLIC PANEL (14) chloride 102 mmol/ L 96-106 Not Available [facility] ([facility]) [address] [facility] [place], [address], 02/10/2024 09:15:11 02/09/20 24 02/10/2024 COMP. METAB OLIC PANEL (14) carbon dioxide, total 23 mmol/ L 20-29 Not Available [facility] ([facility]) [address] [place], [address], 02/10/2024 09:15:11 02/09/20 24 02/10/2024 COMP. METAB OLIC PANEL (14) calcium 9.7 mg/dL 8.6-10 .2 Not Available [facility] ([facility] [address] [place] [place], [address], 02/10/2024 09:15:11 02/09/20 24 02/10/2024 COMP. METAB OLIC PANEL (14) protein, total 6.9 g/dL 6.0-8. 5 Not Available [facility] ([facility]) [address] [place], [address], 02/10/2024 09:15:11 02/09/20 24 02/10/2024 COMP. METAB OLIC PANEL (14) albumin 4.1 g/dL 3.9-4. 9 Not Available [facility] ([facility]) [address] [facility] [place], [address], 02/10/2024 09:15:11 02/09/20 24 02/10/2024 COMP. METAB OLIC PANEL (14) globulin, total 2.8 g/dL 1.5-4. 5 Not Available [facility] ([facility]) [address] [facility] [place], [address], 02/10/2024 09:15:11 02/09/20 24 02/10/2024 COMP. METAB OLIC PANEL (14) bilirubin, total <0.2 mg/dL 0.0-1. 2 Not Available [facility] ([facility]) [address] [facility] [place], [address], 02/10/2024 09:15:11 02/09/20 24 02/10/2024 COMP. METAB OLIC PANEL (14) alkaline phosphatase 93 IU/L 44-121 Not Available [facility] ([facility]) [address] [facility] [place], [address], 02/10/2024 09:15:11 02/09/20 24 02/10/2024 COMP. METAB OLIC PANEL (14) AST (SGOT) 20 IU/L 0-40 Not Available [facility] ([facility]) [address] [facility], [place], [address], 02/10/2024 09:15:11 02/09/20 24 02/10/2024 COMP. METAB OLIC PANEL (14) ALT (SGPT) 21 IU/L 0-44 Not Available [facility] ([facility]) [address] [facility], [place], [address], 02/10/2024 09:15:11 02/09/20 24 02/10/2024 HEMOG LOBIN A1C hemoglobin A1C 5.9 % 4.8-5. 6 above high normal Predi abete s: 5.7 - 6.4 Diabe christiano: >6.4 Glyce yessenia contr ol for adult s with diabe christiano: <7.0 Not Available [facility] ([facility]) [address] [facility], [place], [address], 02/10/2024 09:15:12 02/09/20 24 02/10/2024 TSH TSH 1.670 uIU/m L 0.450- 4.500 Not Available [facility] ([facility]) [address] [facility], [place], [address], 02/10/2024 09:15:13 02/09/20 24 02/10/2024 CBC WITH DIFFE RENTI AL/PL ATELE T WBC 6.5 x10e3 /uL 3.4-10 .8 Not Available [facility] ([facility]) [address] [facility], [place], [address], 02/10/2024 09:15:14 02/09/20 24 02/10/2024 CBC WITH DIFFE RENTI AL/PL ATELE T RBC 5.37 x10e6 /uL 4.14-5 .80 Not Available [facility] ([facility]) [address] [facility], [place], [address], 02/10/2024 09:15:14 02/09/20 24 02/10/2024 CBC WITH DIFFE RENTI AL/PL ATELE T hemoglobin 15.3 g/dL 13.0-1 7.7 Not Available [facility] ([facility]) [address] [facility], [place], [address], 02/10/2024 09:15:14 02/09/20 24 02/10/2024 CBC WITH DIFFE RENTI AL/PL ATELE T hematocrit 47.8 % 37.5-5 1.0 Not Available [facility] ([facility]) [address] [facility], [place], [address], 02/10/2024 09:15:14 02/09/20 24 02/10/2024 CBC WITH DIFFE RENTI AL/PL ATELE T MCV 89 fL 79-97 Not Available [facility] ([facility]) [address] [facility], [place], [address], 02/10/2024 09:15:14 02/09/20 24 02/10/2024 CBC WITH DIFFE RENTI AL/PL ATELE T MCH 28.5 pg 26.6-3 3.0 Not Available [facility] ([facility]) [address] [facility], [place], [address], 02/10/2024 09:15:14 02/09/20 24 02/10/2024 CBC WITH DIFFE RENTI AL/PL ATELE T MCHC 32.0 g/dL 31.5-3 5.7 Not Available [facility] ([facility]) [address] [facility], [place], [address], 02/10/2024 09:15:14 02/09/20 24 02/10/2024 CBC WITH DIFFE RENTI AL/PL ATELE T RDW 12.9 % 11.6-1 5.4 Not Available [facility] ([facility]) [address], [place], [address], 02/10/2024 09:15:14 02/09/20 24 02/10/2024 CBC WITH DIFFE RENTI AL/PL ATELE T platelets 322 x10e3 /uL 150-45 0 Not Available [facility] ([facility]) [address], [place], [address], 02/10/2024 09:15:14 02/09/20 24 02/10/2024 CBC WITH DIFFE RENTI AL/PL ATELE T neutrophils 48 % notest ab. Not Available [facility] ([facility]) [address] [facility], [place], [address], 02/10/2024 09:15:14 02/09/20 24 02/10/2024 CBC WITH DIFFE RENTI AL/PL ATELE T lymphs 37 % notest ab. Not Available [facility] ([facility]) [address] [facility], [place], [address], 02/10/2024 09:15:14 02/09/20 24 02/10/2024 CBC WITH DIFFE RENTI AL/PL ATELE T monocytes 11 % notest ab. Not Available [facility] ([facility]) [address] [facility], [place], [address], 02/10/2024 09:15:14 02/09/20 24 02/10/2024 CBC WITH DIFFE RENTI AL/PL ATELE T eos 3 % notest ab. Not Available [facility] ([facility]) [address] [facility], [place], [address], 02/10/2024 09:15:14 02/09/20 24 02/10/2024 CBC WITH DIFFE RENTI AL/PL ATELE T basos 1 % notest ab. Not Available [facility] ([facility]) [address] [facility], [place], [address], 02/10/2024 09:15:14 02/09/20 24 02/10/2024 CBC WITH DIFFE RENTI AL/PL ATELE T neutrophils (absolute) 3.1 x10e3 /uL 1.4-7. 0 Not Available [facility] ([facility]) [address] [facility], [place], [address], 02/10/2024 09:15:14 02/09/20 24 02/10/2024 CBC WITH DIFFE RENTI AL/PL ATELE T lymphs (absolute) 2.4 x10e3 /uL 0.7-3. 1 Not Available [facility] ([facility]) [address] [facility], [place], [address], 02/10/2024 09:15:14 02/09/20 24 02/10/2024 CBC WITH DIFFE RENTI AL/PL ATELE T monocytes(ab solute) 0.7 x10e3 /uL 0.1-0. 9 Not Available [facility] ([facility]) [address] [facility], [place], [address], 02/10/2024 09:15:14 02/09/20 24 02/10/2024 CBC WITH DIFFE RENTI AL/PL ATELE T eos (absolute) 0.2 x10e3 /uL 0.0-0. 4 Not Available [facility] ([facility]) [address] [facility], [place], [address], 02/10/2024 09:15:14 02/09/20 24 02/10/2024 CBC WITH DIFFE RENTI AL/PL ATELE T baso (absolute) 0.1 x10e3 /uL 0.0-0. 2 Not Available [facility] ([facility]) [address] [facility], [place], [address], 02/10/2024 09:15:14 02/09/20 24 02/10/2024 CBC WITH DIFFE RENTI AL/PL ATELE T immature granulocytes 0 % notest ab. Not Available [facility] ([facility]) [address] [facility], [place], [address], 02/10/2024 09:15:14 02/09/20 24 02/10/2024 CBC WITH DIFFE RENTI AL/PL ATELE T immature grans (abs) 0.0 x10e3 /uL 0.0-0. 1 Not Available [facility] ([facility]) [address] [facility], [place], [address], 02/10/2024 09:15:14 02/09/20 24 02/10/2024 PROST ATE-S [...] [facility] Not Available [facility] ([facility]) [address] [facility], [place], [address], 02/10/2024 09:15:15 02/09/20 24 02/10/2024 TRIIO DOTHY WADE E (T3), FREE triiodothyro nine (T3), free 3.2 pg/mL 2.0-4. 4 Not Available [facility] ([facility]) [address] [facility], [place], [address], 02/10/2024 09:15:15 06/14/20 24 06/15/2024 LIPID PANEL cholesterol, total 188 mg/dL 100-19 9 Not Available [facility] ([facility]) [address] [facility] [place], [address], 06/15/2024 09:13:52 06/14/20 24 06/15/2024 LIPID PANEL triglyceride s 140 mg/dL 0-149 Not Available [facility] ([facility]) [address] [facility] [place], [address], 06/15/2024 09:13:52 06/14/20 24 06/15/2024 LIPID PANEL HDL cholesterol 44 mg/dL >39 Not Available [facility] ([facility]) [address] [facility] [place], [address], 06/15/2024 09:13:52 06/14/20 24 06/15/2024 LIPID PANEL VLDL cholesterol lynn 25 mg/dL 5-40 Not Available [facility] ([facility]) [address] [place], [address], 06/15/2024 09:13:52 06/14/20 24 06/15/2024 LIPID PANEL LDL chol calc ([facility]) 119 mg/dL 0-99 above high normal Not Available [facility] ([facility]) [address] [place], [address], 06/15/2024 09:13:52 06/14/20 24 06/15/2024 T4, FREE T4,free(dire ct) 0.84 NG/dL 0.82-1 .77 Not Available [facility] ([facility]) [address] [place], [address], 06/15/2024 09:13:53 06/14/20 24 06/15/2024 COMP. METAB OLIC PANEL (14) glucose 101 mg/dL 70-99 above high normal Not Available [facility] ([facility]) [address] [place], [address], 06/15/2024 09:13:55 06/14/20 24 06/15/2024 COMP. METAB OLIC PANEL (14) BUN 14 mg/dL 8-27 Not Available [facility] ([facility]) [address] [facility] [place], [address], 06/15/2024 09:13:55 06/14/20 24 06/15/2024 COMP. METAB OLIC PANEL (14) creatinine 1.16 mg/dL 0.76-1 .27 Not Available [facility] ([facility]) [address] [facility] [place], [address], 06/15/2024 09:13:55 06/14/20 24 06/15/2024 COMP. METAB OLIC PANEL (14) eGFR 72 mL/mi n/1.7 3 >59 Not Available [facility] ([facility]) [address] [facility], [place], [address], 06/15/2024 09:13:55 06/14/20 24 06/15/2024 COMP. METAB OLIC PANEL (14) BUN/creatini ne ratio 12 - Not Available [facility] ([facility]) [address] [facility] [place], [address], 06/15/2024 09:13:55 06/14/20 24 06/15/2024 COMP. METAB OLIC PANEL (14) sodium 139 mmol/ L 134-14 4 Not Available [facility] ([facility]) [address] [facility] [place], [address], 06/15/2024 09:13:55 06/14/20 24 06/15/2024 COMP. METAB OLIC PANEL (14) potassium 4.3 mmol/ L 3.5-5. 2 Not Available [facility] ([facility]) [address] [facility] [place], [address], 06/15/2024 09:13:55 06/14/20 24 06/15/2024 COMP. METAB OLIC PANEL (14) chloride 104 mmol/ L 96-106 Not Available [facility] ([facility]) [address], [place], [address], 06/15/2024 09:13:55 06/14/20 24 06/15/2024 COMP. METAB OLIC PANEL (14) carbon dioxide, total 20 mmol/ L 20-29 Not Available [facility] ([facility]) [address], [place], [address], 06/15/2024 09:13:55 06/14/20 24 06/15/2024 COMP. METAB OLIC PANEL (14) calcium 9.0 mg/dL 8.6-10 .2 Not Available [facility] ([facility]) [address] [place], [address], 06/15/2024 09:13:55 06/14/20 24 06/15/2024 COMP. METAB OLIC PANEL (14) protein, total 6.6 g/dL 6.0-8. 5 Not Available [facility] ([facility]) [address], [place], [address], 06/15/2024 09:13:55 06/14/20 24 06/15/2024 COMP. METAB OLIC PANEL (14) albumin 4.1 g/dL 3.9-4. 9 Not Available [facility] ([facility] [address] [facility] [place], [address], 06/15/2024 09:13:55 06/14/20 24 06/15/2024 COMP. METAB OLIC PANEL (14) globulin, total 2.5 g/dL 1.5-4. 5 Not Available [facility] ([facility] [address] [facility] [place], [address], 06/15/2024 09:13:55 06/14/20 24 06/15/2024 COMP. METAB OLIC PANEL (14) bilirubin, total 0.3 mg/dL 0.0-1. 2 Not Available [facility] ([facility]) [address] [facility], [place], [address], 06/15/2024 09:13:55 06/14/20 24 06/15/2024 COMP. METAB OLIC PANEL (14) alkaline phosphatase 90 IU/L 44-121 Not Available [facility] ([facility]) [address] [place], [address], 06/15/2024 09:13:55 06/14/20 24 06/15/2024 COMP. METAB OLIC PANEL (14) AST (SGOT) 30 IU/L 0-40 Not Available [facility] ([facility]) [address] [facility] [place], [address], 06/15/2024 09:13:55 06/14/20 24 06/15/2024 COMP. METAB OLIC PANEL (14) ALT (SGPT) 33 IU/L 0-44 Not Available [facility] ([facility]) [address] [facility] [place], [address], 06/15/2024 09:13:55 06/14/20 24 06/15/2024 TSH TSH 1.480 uIU/m L 0.450- 4.500 Not Available [facility] ([facility]) [address] [facility] [place], [address], 06/15/2024 09:13:56 06/14/20 24 06/15/2024 CBC WITH DIFFE RENTI AL/PL ATELE T WBC 6.3 x10e3 /uL 3.4-10 .8 Not Available [facility] ([facility]) [address] [facility] [place], [address], 06/15/2024 09:13:57 06/14/20 24 06/15/2024 CBC WITH DIFFE RENTI AL/PL ATELE T RBC 5.45 x10e6 /uL 4.14-5 .80 Not Available [facility] ([facility]) [address] [facility] [place], [address], 06/15/2024 09:13:57 06/14/20 24 06/15/2024 CBC WITH DIFFE RENTI AL/PL ATELE T hemoglobin 15.2 g/dL 13.0-1 7.7 Not Available [facility] ([facility]) [address] [facility], [place], [address], 06/15/2024 09:13:57 06/14/20 24 06/15/2024 CBC WITH DIFFE RENTI AL/PL ATELE T hematocrit 47.1 % 37.5-5 1.0 Not Available [facility] ([facility]) [address] [place], [address], 06/15/2024 09:13:57 06/14/20 24 06/15/2024 CBC WITH DIFFE RENTI AL/PL ATELE T MCV 86 fL 79-97 Not Available [facility] ([facility]) [address] [place], [address], 06/15/2024 09:13:57 06/14/20 24 06/15/2024 CBC WITH DIFFE RENTI AL/PL ATELE T MCH 27.9 pg 26.6-3 3.0 Not Available [facility] ([facility]) [address] [place], [address], 06/15/2024 09:13:57 06/14/20 24 06/15/2024 CBC WITH DIFFE RENTI AL/PL ATELE T MCHC 32.3 g/dL 31.5-3 5.7 Not Available [facility] ([facility]) [address] [place], [address], 06/15/2024 09:13:57 06/14/2006/15/2024 CBC WITH DIFFE RENTI AL/PL ATELE T RDW 13.7 % 11.6-1 5.4 Not Available [facility] ([facility]) [address] [place], [address], 06/15/2024 09:13:57 06/14/20 24 06/15/2024 CBC WITH DIFFE RENTI AL/PL ATELE T platelets 292 x10e3 /uL 150-45 0 Not Available [facility] ([facility]) [address] [facility], [place], [address], 06/15/2024 09:13:57 06/14/20 24 06/15/2024 CBC WITH DIFFE RENTI AL/PL ATELE T neutrophils 57 % notest ab. Not Available [facility] ([facility]) [address] [facility], [place], [address], 06/15/2024 09:13:57 06/14/20 24 06/15/2024 CBC WITH DIFFE RENTI AL/PL ATELE T lymphs 29 % notest ab. Not Available [facility] ([facility]) [address] [facility], [place], [address], 06/15/2024 09:13:57 06/14/20 24 06/15/2024 CBC WITH DIFFE RENTI AL/PL ATELE T monocytes 11 % notest ab. Not Available [facility] ([facility]) [address] [facility], [place], [address], 06/15/2024 09:13:57 06/14/20 24 06/15/2024 CBC WITH DIFFE RENTI AL/PL ATELE T eos 2 % notest ab. Not Available [facility] ([facility]) [address] [facility], [place], [address], 06/15/2024 09:13:57 06/14/20 24 06/15/2024 CBC WITH DIFFE RENTI AL/PL ATELE T basos 1 % notest ab. Not Available [facility] ([facility]) [address] [facility], [place], [address], 06/15/2024 09:13:57 06/14/20 24 06/15/2024 CBC WITH DIFFE RENTI AL/PL ATELE T neutrophils (absolute) 3.6 x10e3 /uL 1.4-7. 0 Not Available [facility] ([facility]) [address] [facility], [place], [address], 06/15/2024 09:13:57 06/14/20 24 06/15/2024 CBC WITH DIFFE RENTI AL/PL ATELE T lymphs (absolute) 1.8 x10e3 /uL 0.7-3. 1 Not Available [facility] ([facility]) [address] [facility], [place], [address], 06/15/2024 09:13:57 06/14/20 24 06/15/2024 CBC WITH DIFFE RENTI AL/PL ATELE T monocytes(ab solute) 0.7 x10e3 /uL 0.1-0. 9 Not Available [facility] ([facility]) [address] [facility], [place], [address], 06/15/2024 09:13:57 06/14/20 24 06/15/2024 CBC WITH DIFFE RENTI AL/PL ATELE T eos (absolute) 0.1 x10e3 /uL 0.0-0. 4 Not Available [facility] ([facility]) [address] [facility], [place], [address], 06/15/2024 09:13:57 06/14/20 24 06/15/2024 CBC WITH DIFFE RENTI AL/PL ATELE T baso (absolute) 0.1 x10e3 /uL 0.0-0. 2 Not Available [facility] ([facility]) [address] [facility], [place], [address], 06/15/2024 09:13:57 06/14/20 24 06/15/2024 CBC WITH DIFFE RENTI AL/PL ATELE T immature granulocytes 0 % notest ab. Not Available [facility] Lab) [address] [place], [address], 06/15/2024 09:13:57 06/14/20 24 06/15/2024 CBC WITH DIFFE RENTI AL/PL ATELE T immature grans (abs) 0.0 x10e3 /uL 0.0-0. 1 Not Available [facility] ([facility]) [address] [facility], [place], [address], 06/15/2024 09:13:57 06/14/20 24 06/15/2024 TRIIO DOTHY WADE E (T3), FREE triiodothyro nine (T3), free 3.8 pg/mL 2.0-4. 4 Not Available [facility] ([facility]) [address] [facility], [place], [address], 06/15/2024 09:13:58 06/20/20 24 06/20/2024 PFT, compl ete No observ ation record ed. [facility] [address] [address], [place], [address], 06/20/2024 23:16:34 08/03/19 25 08/03/2024 LDCT, chest , for lung cance r scree margy No observ ation record ed. [address] [facility], [place], [address], 08/05/2024 17:15:57 08/05/19 25 07/26/2024 home sleep study No observ ation record ed. [address] [facility], [place], [address], 08/09/2024 10:15:14 08/08/19 25 07/26/2024 home sleep study No observ ation record ed. [facility] [address] [facility], [place], [address], 08/09/2024 10:15:15 08/10/19 25 08/10/2024 NM, myoca rdial perfu nancy scan No observ ation record ed. [facility] [address], [place], [address], 08/12/2024 11:14:34 09/09/19 25 08/18/2024 polys omnog billy , titra tion study (PROC ) No observ ation record ed. [facility] [address] [facility] [address] [place] [address], [address], 09/09/2024 13:14:54 09/10/19 25 08/18/2024 home sleep study No observ ation record ed. [facility] [address] [place], [address], 09/09/2024 13:22:28 Result Notes None recorded. Problems Name Problem SNOMED Code Status Onset Date Resolution Date Notes Provider Name and Address Organization Details Recorded Time Essential hypertension 44926958 Active 2023 Faith Stone LPN null, [place] - [facility] 4 10:13:59 Epilepsy 35395272 Active 2023 Faith Stone LPN [place] [facility] 4 10:14:14 Obstructive sleep apnea syndrome 10774289 Active 2023 Prasanth Dockery MD Attn: Eneida cabrera,[address] [place], [address], [place] [facility] 4 11:12:29 Gastroesophage al reflux disease without esophagitis 112494729 Active 2023 Prasanth Dockery MD Attn: Eneida cabrera,[address] [place], [address], [place] [facility] 4 11:12:38 Skin lesion 82887339 Active 2023 Stewart Rolon [place], [place] [facility] 4 12:23:37 Body mass index 40+ - severely obese 126115510 Active 2023 Stewart Rol[place] [facility] 4 12:23:38 Morbid obesity 031208675 Active 2023 Stewart Rol[place] [facility] 4 12:23:39 Dyspnea 632309354 Active 2023 Stewart Rolon CHAR[place] [facility] 4 12:23:43 Erectile dysfunction 412934202 Active 2023 Stewart Rolon [place] [facility] 4 12:23:46 Sleep disorder 28574494 Active 2023 Stewart Rolon [place] [facility] 4 12:23:48 Nicotine dependence 76479536 Active 2023 Stewart Rol[place] [facility] 4 12:23:50 Problem Notes None recorded. Procedures Surgical History Date Name Laterality Status Provider Name and Address Organization Details Recorded Time procedure on brain completed Itzel Young [place] - [facility] 02/09/2024 15:37:58 Imaging Results Imaging Date Name Status LastModified by Organiz [facility] Details LastModified Time 06/20/2024 PFT, complete completed [facility] [address] [address], [place], [address], 06/20/2024 23:16:34 08/03/2024 LDCT, chest, for lung cancer screening completed [address], [address], 08/05/2024 17:15:57 07/26/2024 home sleep study completed [address], [address], 08/09/2024 10:15:14 07/26/2024 home sleep study completed [facility] [address] [facility], [place], [address], 08/09/2024 10:15:15 08/10/2024 NM, myocardial perfusion scan completed [facility] [address], [place], [address], 08/12/2024 11:14:34 08/18/2024 polysomnography , titration study (PROC) completed [facility] [address] [facility], [place], [address], 09/09/2024 13:14:54 08/18/2024 home sleep study completed [facility] [address] [facility], [place], [address], 09/09/2024 13:22:28 Procedure Notes None recorded. Medical Equipment None Reported. Allergies Allergen ID Allergen Name Allergen Category Reaction Reaction Severity Criticality Documentation Date Start Date Code Code System Note Provider Name and Address Organization Details Recorded Time 649284 lisinopri l medicatio n swelling mild low 02/09/2024 54811 RxNorm Not Available Not Available Not Available Medications Name Sig Start Date Stop Date Status Note LastModified by Organization Details LastModified Time celecoxib 200 mg capsule 02/09 completed Not Available Not Available Not Available amoxicill in 500 mg capsule TAKE 1 CAPSULE BY MOUTH THREE TIMES DAILY 10/11 completed Not Available Not Available Not Available atorvasta tin 10 mg tablet TAKE 1 TABLET BY MOUTH EVERY DAY active Not Available Not Available No t Available ibuprofen 800 mg tablet 02/09 completed Not Available Not Available Not Available metoprolo l succinate ER 50 mg tablet,ex tended release 24 hr TAKE 1 TABLET BY MOUTH EVERY DAY active Not Available Not Available No t Available valacyclo vir 1 gram tablet TAKE 1 TABLET BY MOUTH DAILY 10/11 completed Not Available Not Available Not Available prednison e 20 mg tablet TAKE 1 TABLET BY MOUTH DAILY FOR 6 DAYS 02/09 completed Not Available Not Available Not Available clindamyc in HCl 150 mg capsule 02/09 completed Not Available Not Available Not Available acetamino phen 300 mg-codein e 30 mg tablet TAKE 1 TABLET BY MOUTH FOUR TIMES DAILY NEEDED 10/11 completed Not Available Not Available Not Available [...] Available hydrochlo rothiazid e 25 mg tablet 10/11 completed Not Available Not Available Not Available methylpre [...] Address Organization Details Last Updated DateTime 4 759382. 57 g 42.3 kg/m2 175.26 cm 78 /min 97 % 97 % 134 mm[Hg] 72 mm[Hg] Itzel Young [place] - [facility] 4 15:42:09 Date Recorded Body height Body mass index (BMI) Body weight Heart rate Oxygen saturation Oxygen saturation in Arterial blood by Pulse oximetry Systolic blood pressure Diastolic blood pressure Provider Name and Address Organization Details Last Updated DateTime 4 175.26 cm 44.6 kg/m2 960939. 9 g 85 /min 96 % 96 % 124 mm[Hg] 86 mm[Hg] Carlee Caputo MA [facility] 4 10:21:39 Date Recorded Body height Body mass index (BMI) Body weight Heart rate Oxygen saturation Oxygen saturation in Arterial blood by Pulse oximetry Systolic blood pressure Diastolic blood pressure Provider Name and Address Organization Details Last Updated DateTime 5 175.26 cm 44.8 kg/m2 916507. 85 g 76 /min 96 % 96 % 132 mm[Hg] 92 mm[Hg] Carlee Caputo MA [facility] 5 11:30:29 Social History Question Answer Notes LastModified by Organizat ion Details LastModified Time Tobacco Smoking Status Former Smoker Stopped October 2023 Stewart Rolon MA [facility] 06/14/2024 11:29:02 What Is Your Level Of [...] Date Of Your Most Recent Tobacco Screening? 10/11/2024 [email or web address] Information not available 10/11/2024 What Is Your Current Pack Years? 10packyears [...] SNOMED-CT Code Diagnosis ICD10 Code Diagnosis Note [id number] [facility] [address] [place] [address] 02/09/2024 14:52:13 02/09/2024 16:38:33 Essential hypertension 62869166 I10 Obesity 804161160 E66.8 Diabetes m ellitus screening 217156407 Z13.1 Screening for malignant neoplasm of prostate 498120157 Z12.5 [id number] MD Georgina Rubio (Adult Med) [address] [place] [address] 06/14/2024 09:48:05 06/14/2024 11:48:14 Body mass index 40+ - severely obese 714868898 Z68.41 Morbid obesity 638763844 E66.01 Obstructiv e sleep apnea syndrome 77340771 G47.33 Gastroesop hageal reflux disease without esophagitis 980575845 K21.9 Skin lesion 58194371 L98 .9 Dyspnea 759108390 R06.00 Essential hypertension 65784258 I10 Erectile dysfunction 860 835169 F52.21 Sleep disorder 97325007 G47.9 Nicotine dependence 5629 4008 Z87.891 History of seizure 55520 25567 Z86.69 Prediabetes 258005619 R7 3.03 [id number] Stewart Rolon MA [facility]Ad[facility] [address] [place] [address] 10/11/2024 10:46:28 10/11/2024 12:20:08 Body mass index 40+ - severely obese 273683028 Z68.41 Morbid obesity 144721578 E66.01 Lesion of brain 67625946 8 G93.9 Screening for malignant neoplasm of colon 708936724 Z12.11 Health Concerns Section Related Observation LastModified by Organization Detai ls LastModified Time None Recorded Concern Status LastModified by Organization Details LastModified Time None Recorded Advance Directives Directive None Recorded Payers Encounter Date Sequence Insurance Name Policy Number Policy Brian Covered Member ID Brian Member ID Guarantor Name 02/09/2024 1 [facility] (MEDICARE REPLACEMENT/A DVANTAGE - HMO) [id number] Keanu Pleitez [id number] Keanu Pleitez 06/14/2024 1 [facility] (MEDICARE REPLACEMENT/A DVANTAGE - HMO) [id number] Keanu Pleitez [id number] Keanu Pleitez Notes Date Note Type Note [...] MD Attn: Accounting[address] , [place], [address], [facility] 02/27/2024 17:21:21 06/14/2024 text/html Several issues 1 [...] headache or dizziness. Prasanth Dockery MD Attn: Accounting, [address] [facility], [place], [address], [facility] 06/19/2024 13:57:26
== END 2024-10-28 08:19 | disposition home or self-care (01) ==
PROVIDERS: PCP Internal Medicine; Visit Provider Internal Medicine
DX: I69.314 Frontal lobe and executive function deficit following cerebral infarction (principal); I67.82 Cerebral ischemia; G93.9 Disorder of brain, unspecified
CPT/HCPCS: 70553; A9579

== ENCOUNTER 2025-05-09 00:59 | Day surgery (SDC) | payer MEDICARE, SELFPAY ==
[2025-04-26 13:20] VITALS: BMI 44.4
--- OUTSIDE RECORDS SUMMARY | 2025-05-09 01:02 | XMS_ITS | Clinical Summary ---
Author Organization [facility] Address [address] [place] [address] Phone Care Team Providers Care Paperhanger Assistant Name Role Phone Greg Dockery MD Primary Care Provider [phone] Alirio Montemayor MD Unavailable [phone] Allergies Active Allergy Reactions Criticality Noted Date Comments Lisinopril Swelling 02/28/2025 Medications atorvastatin (LIPITOR) 10 MG Tablet Take 10 mg by mouth daily. 09/28/2024 Active metoprolol Succinate (TOPROL-XL) 50 MG TABLET SR 24 HR Take 50 mg by mouth daily. 08/19/2024 Active Encounters Date Type Department Care Team Description 03/16/2025 Telephone [facility] [address] [place] [address] Alirio Montemayor MD 03/03/2025 10:30 AM CDT [facility] [address] [place] [address] Alirio Montemayor MD Seizure (HCC) Discharge Disposition: Discharged to home or Selfcare 03/01/2025 1:12 PM CDT - 03/01/2025 11:59 PM CDT Hospital Encounter [facility] [address] [place] [address] Provider, Not On File Discharge Disposition: Discharged to home or Selfcare 02/28/2025 2:15 PM CDT Office Visit [facility] [address] [place] [address] Alirio Montemayor MD Seizure (HCC) (Primary Dx) Discharge Disposition: Discharged to home or Selfcare 02/28/2025 Travel from Last 3 Months Family History Medical History Relation Name Comments Stroke Brother Colon Cancer Father Diabetes Mother Relation Name Status Comments Brother Alive Father Mother Sister Alive Social History Tobacco Use Types Packs/Day Years Used Date Smoking Tobacco: Former Cigarettes 1 1.8 0 07/06/2023 - 07/06/1994 Smokeless Tobacco: Never Tobacco Cessation:Counseling Given: Not Answered Alcohol Use Standard Drinks/Week Comments Yes 0 (1 standard drink = 0.6 oz pur e alcohol) ocassional Sex and Gender Information Value Date Recorded Sex Assigned at Not on file Legal Sex Male 8:25 AM CDT Gender Identity Not on file Sexual Orientation Not on file Last Filed Vital Signs Vital Sign Reading Time Taken Comments Blood Pressure 136/84 02/28/2025 1:58 PM CDT Pulse 67 02/28/2025 1:58 PM CDT Temperature 36.3 C (97.4 F) 02/28/2025 1:58 PM CDT Respiratory Rate 18 02/28/2025 1:58 PM CDT Oxygen Saturation 96% 02/28/2025 1:58 PM CDT Inhaled Oxygen Concentration - - Weight 140.3 kg (309 lb 6.4 oz) 02/28/2025 1:58 PM CDT Height 175.3 cm (5' 9) 02/28/2025 1:58 PM CDT Body Mass Index 45.69 02/28/2025 1:58 PM CDT Plan of Treatment Health Maintenance Due Date Last Done Comments Hepatitis C Virus (HCV) Screening 1962 TdaP Immunization 1962 Cologuard 2007 Colonoscopy 2007 Colorectal Cancer Screening 2007 Immunochemical Fecal Occult Blood 2007 Pneumococcal Immunization (5 0+ years) (1 of 1 - PCV) 2012 Zoster Immunization (1 of 2) 2012 PSA Discussion 2017 Respiratory Syncytial Virus (RSV) Immunization (Adult) (1 - Risk 60-74 years 1-dose series) 2022 Welcome to Medicare (IPPE) [id number] 08/06/2024 Influenza Immunization (#1) 2025 SARS-COV-2 Immunization ( - season) 2025 Hepatitis B Immunization Aged Out No longer eligible based on patient's age to complete this topic Human Papillomavirus (HPV) Immunization Aged Out No longer eligible b ased on patient's age to complete this topic Meningococcal Immunization (ACWY) Aged Out No longer eligible based on patient's age to complete this topic Rotavirus Immunization Aged Out No lo nger eligible based on patient's age to complete this topic Procedures Procedure Name Priority Date/Time Associated Diagnosis Comments EEG AWAKE OR DROWSY ROUTINE Routine 03/03/2025 10:30 AM CDT Seizure (HCC) MR REFERENCE IMAGES FOR IMAGE IMPORT Routine 03/01/2025 1:12 PM CDT from Last 3 Months Results * EEG AWAKE OR DROWSY ROUTINE (03/03/2025 10:30 AM CDT) Narrative Alirio Montemayor MD - 03/03/2025 10:30 AM CDT Alirio Montemayor MD 03/06/2025 2:48 PM Electroencephalography Date of EE03/03/25 Clinical History: The patient is a 64 year old male who has been experiencing episodes of seizure. EEG Description: This EEG ws recorded on a [place] with 18 cranial leads and an EKG. The International 10-20 system was used for electrode placement. Background: The recording was done during wakefulness and drowsiness. There was a normal 9 hz posterior dominant rhythm, with a normal posterior to anterior gradient. Sleep: No sleep architecture noted. Activation Procedures: Hyperventilation produced no epileptic discharges. Photic stimulation shows good driving. Epileptic Discharges: No epileptic discharges noted. Interpretation: This is a normal EEG during wakefulness and drowsiness. No epileptic discharges were seen. A normal EEG does not rule out seizure and clinical correlation is recommended. us Alirio Montemayor MD NEUROLOGY ORDERABLES Final R esult * MR REFERENCE IMAGES FOR IMAGE IMPORT (03/01/2025 1:12 PM CDT) us Not On File Provider IMG MR ORDERABLES Final Res ult from Last 3 Months Insurance [facility] Care Teams Paperhanger Assistant Relationship Specialty Start Date End Date Greg Dockery MD [address] [place] [address] PCP - General Internal Medicine 10/11/24 Alirio Montemayor MD [address] [place] [id number] Consulting Physician Neurology 02/28/25
--- OUTSIDE RECORDS SUMMARY | 2025-05-09 01:02 | XMS_ITS | Data Portability ---
Author Organization [facility] Address [address] [place] [address] Care Team Providers Care Perioperative Tech Name Role Phone PRASANTH DOCKERY Primary Care Provider Assessment Encounter Date Assessment Date Assessment LastModified by Organization Details LastModified Time 06/14/2024 06/14/2024 dermatology. Healthy lifestyle care instructions. LD CT. PFTs. Echo. Blood work. Continue current therapy. Stay off cigarettes. 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 No seizure activity in the last year if not longer follow up with me in 4 months. Dietary strategies discussed for hypertension prediabetes and obesity [email or web address] Not available 06/19/2024 13:57:09 10/11/2024 10/11/2024 Double up on weight loss strategies needs to watch salt dietary saw maneuvers for helping control his weight were discussed and that should help with the blood pressure reduction as well continue with the atorvastatin continue with CPAP continue with the psychiatric medications as well I will see him back in about 3-4 months and I believe we have got the order for him to get a colonoscopy sent but we will double check the [email or web address] Not available 11/05/2024 13:13:28 02/07/2025 02/07/2025 Continue current therapy generic Viagra for erectile dysfunction follow up in 4 months with blood work at that time follow up in 4 months Not available 03/06/2025 17:18:51 03/28/2025 03/28/2025 Treat the rhinitis he does have 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 on his MRI of the brain that was done if this does not settle him down we will consider a neurology consultation [email or web address] Not available 03/28/2025 21:55:12 Plan of Treatment Reminders Order Date Submit Date Provider Last Modified By Organization Details Last Modified Time Details Appointments ANY 15 2024 10:30A M Prasanth Dockery MD Not available Not available Not available Lab unlisted lab - T4, free 2023 024 [facility], [address], [address], [place], [address], 06/15/2024 09:13:53 T3, free, serum or plasma 2023 024 [facility], [address], [place], [address], 06/15/2024 09:13:59 TSH, ultra-sen sitive, serum 2023 [facility], [address], [place], [address], 06/15/2024 09:13:56 lipid panel, serum 2023 024 [facility], [address], [place], [address], 06/15/2024 09:13:52 CBC w/ auto diff 2023 024 [facility], [address], [place], [address], 06/15/2024 09:13:57 CMP, serum or plasma 2023 024 [facility], [address], [place], [address], 06/15/2024 09:13:55 Referral urologist referral 2023 024 [facility], [address] [place] [address] Dr Enoch Marvin, [address], [place], [address], 10/11/2024 12:20:38 dermatolo gist referral 2023 024 [facility], [address] [place], [address], 12/19/2024 17:50:40 Procedures colonosco py screening (PROC) 2024 025 [facility], [address], [address], [place], [address], 05/07/2025 04:08:47 Surgeries None recorded. Imaging MRI, brain, w/wo contrast 2024 025 [facility] (Imaging), [address] [facility] [address], [place], [address], 11/02/2024 09:09:13 home sleep study 2023 024 [facility] [address] [place], [address], 08/05/2024 21:27:35 LDCT, chest, for lung cancer screening 2023 024 [facility] (Imaging), [address] [facility] [address], [place], [address], 08/05/2024 09:13:59 US, echocardi ogram 2023 024 [facility], [address], [address], [place], [address], 10/17/2024 12:18:29 PFT, complete 2023 024 [facility], [address], [address], [place], [address], 06/20/2024 16:25:26 Medication Orders fluticaso ne propionat e 50 mcg/actua tion nasal spray,dixie pension 2024 025 [email or web address] [id number], [address], [place], [place], [id number], 03/28/2025 13:38:07 Viagra 100 mg tablet 2024 025 [email or web address] [id number], [address], [place], [place], [id number], 02/07/2025 17:45:06 chlorthal idone 25 mg tablet 2024 025 [email or web address] [id number], [address], [place], [place], [id number], 02/07/2025 17:45:06 Patient TargetsNo targets recorded. Patient Instructions Encounter Date Encounter Id Patient Instructions Last Modified By Organization Details Last Modified Time 06/14/2024 [id number] A healthy lifestyle: care instructions [email or web address] Not available 06/14/2024 11:08:02 10/11/2024 [id number] A healthy lifestyle: care instructions [email or web address] Not available 10/11/2024 15:41:46 02/07/2025 [id number] A healthy lifestyle: care instructions [email or web address] Not available 02/07/2025 17:45:06 03/28/2025 [id number] A healthy lifestyle: care instructions [email or web address] Not available 03/28/2025 13:38:07 Reason for Referral Telecommunicator Referral for S kin lesion Referring Physician: Prasanth Dockery, Internal Medicine, Encounter Date: 06/14/2024 Urologist Referral for Erect ile dysfunction Referring Physician: Prasanth Dockery, Internal Medicine, Encounter Date: 06/14/2024 Results Created Date Observation Date Name Description Value Unit Range Abnormal Flag Note LastModifiedBy Organization Detail LastModifiedTime 06/14/20 24 06/15/2024 LIPID PANEL cholesterol, total 188 mg/dL 100-19 9 Not Available [facility] ([facility]) [address], [place], [address], 06/15/2024 09:13:52 06/14/20 24 06/15/2024 LIPID PANEL triglyceride s 140 mg/dL 0-149 Not Available [facility] ([facility]) [address] [place], [address], 06/15/2024 09:13:52 06/14/20 24 06/15/2024 LIPID PANEL HDL cholesterol 44 mg/dL >39 Not Available [facility] [address] [place], [address], 06/15/2024 09:13:52 06/14/20 24 06/15/2024 LIPID PANEL VLDL cholesterol lynn 25 mg/dL 5-40 Not Available [facility]) [address] [place], [address], 06/15/2024 09:13:52 06/14/20 24 06/15/2024 LIPID PANEL LDL chol calc ([facility]) 119 mg/dL 0-99 above high normal Not Available [facility] ([facility]) [address] [place], [address], 06/15/2024 09:13:52 06/14/20 24 06/15/2024 T4, FREE T4,free(dire ct) 0.84 NG/dL 0.82-1 .77 Not Available [facility] ([facility]) [address] [place], [address], 06/15/2024 09:13:53 06/14/20 24 06/15/2024 COMP. METAB OLIC PANEL (14) glucose 101 mg/dL 70-99 above high normal Not Available [facility] ([facility]) [address] [place], [address], 06/15/2024 09:13:55 06/14/20 24 06/15/2024 COMP. METAB OLIC PANEL (14) BUN 14 mg/dL 8-27 Not Available [facility] ([facility]) [address], [address], 06/15/2024 09:13:55 06/14/20 24 06/15/2024 COMP. METAB OLIC PANEL (14) creatinine 1.16 mg/dL 0.76-1 .27 Not Available [facility] ([facility]) [address] [place], [address], 06/15/2024 09:13:55 06/14/20 24 06/15/2024 COMP. METAB OLIC PANEL (14) eGFR 72 mL/mi n/1.7 3 >59 Not Available [facility] ([facility]) [address] [place], [address], 06/15/2024 09:13:55 06/14/20 24 06/15/2024 COMP. METAB OLIC PANEL (14) BUN/creatini ne ratio 04-28 Not Available [facility] ([facility]) [address], [address], 06/15/2024 09:13:55 06/14/20 24 06/15/2024 COMP. METAB OLIC PANEL (14) sodium 139 mmol/ L 134-14 4 Not Available [facility] ([facility]) [address] [place], [address], 06/15/2024 09:13:55 06/14/20 24 06/15/2024 COMP. METAB OLIC PANEL (14) potassium 4.3 mmol/ L 3.5-5. 2 Not Available [facility] ([facility] [address] [place], [address], 06/15/2024 09:13:55 06/14/20 24 06/15/2024 COMP. METAB OLIC PANEL (14) chloride 104 mmol/ L 96-106 Not Available [facility] ([facility] [address] [place], [address], 06/15/2024 09:13:55 06/14/20 24 06/15/2024 COMP. METAB OLIC PANEL (14) carbon dioxide, total 20 mmol/ L 20-29 Not Available [facility] [address] [place], [address], 06/15/2024 09:13:55 06/14/20 24 06/15/2024 COMP. METAB OLIC PANEL (14) calcium 9.0 mg/dL 8.6-10 .2 Not Available [facility] ([facility]) [address] [place], [address], 06/15/2024 09:13:55 06/14/20 24 06/15/2024 COMP. METAB OLIC PANEL (14) protein, total 6.6 g/dL 6.0-8. 5 Not Available [facility] ([facility]) [address], [address], 06/15/2024 09:13:55 06/14/20 24 06/15/2024 COMP. METAB OLIC PANEL (14) albumin 4.1 g/dL 3.9-4. 9 Not Available [facility] ([facility]) [address] [place], [address], 06/15/2024 09:13:55 06/14/20 24 06/15/2024 COMP. METAB OLIC PANEL (14) globulin, total 2.5 g/dL 1.5-4. 5 Not Available [facility] ([facility]) [address], [address], 06/15/2024 09:13:55 06/14/20 24 06/15/2024 COMP. METAB OLIC PANEL (14) bilirubin, total 0.3 mg/dL 0.0-1. 2 Not Available [facility] [address] [place], [address], 06/15/2024 09:13:55 06/14/20 24 06/15/2024 COMP. METAB OLIC PANEL (14) alkaline phosphatase 90 IU/L 44-121 Not Available [facility]) [address], [place], [address], 06/15/2024 09:13:55 06/14/20 24 06/15/2024 COMP. METAB OLIC PANEL (14) AST (SGOT) 30 IU/L 0-40 Not Available [facility] ([facility]) [address], [place], [address], 06/15/2024 09:13:55 06/14/20 24 06/15/2024 COMP. METAB OLIC PANEL (14) ALT (SGPT) 33 IU/L 0-44 Not Available [facility] ([facility]) [address], [place], [address], 06/15/2024 09:13:55 06/14/20 24 06/15/2024 TSH TSH 1.480 uIU/m L 0.450- 4.500 Not Available [facility] ([facility]) [address] [place], [address], 06/15/2024 09:13:56 06/14/20 24 06/15/2024 CBC WITH DIFFE RENTI AL/PL ATELE T WBC 6.3 x10e3 /uL 3.4-10 .8 Not Available [facility] ([facility]) [address], [place], [address], 06/15/2024 09:13:57 06/14/20 24 06/15/2024 CBC WITH DIFFE RENTI AL/PL ATELE T RBC 5.45 x10e6 /uL 4.14-5 .80 Not Available [facility] ([facility]) [address] [place] [address], [place], [address], 06/15/2024 09:13:57 06/14/20 24 06/15/2024 CBC WITH DIFFE RENTI AL/PL ATELE T hemoglobin 15.2 g/dL 13.0-1 7.7 Not Available [facility] ([facility]) [address] [place], [address], 06/15/2024 09:13:57 06/14/20 24 06/15/2024 CBC WITH DIFFE RENTI AL/PL ATELE T hematocrit 47.1 % 37.5-5 1.0 Not Available [facility] ([facility]) [address], [place], [address], 06/15/2024 09:13:57 06/14/2006/15/2024 CBC WITH DIFFE RENTI AL/PL ATELE T MCV 86 fL 79-97 Not Available [facility] ([facility]) [address] [place], [address], 06/15/2024 09:13:57 06/14/2006/15/2024 CBC WITH DIFFE RENTI AL/PL ATELE T MCH 27.9 pg 26.6-3 3.0 Not Available [facility] ([facility]) [address] [place], [address], 06/15/2024 09:13:57 06/14/20 24 06/15/2024 CBC WITH DIFFE RENTI AL/PL ATELE T MCHC 32.3 g/dL 31.5-3 5.7 Not Available [facility] ([facility]) [address] [place], [address], 06/15/2024 09:13:57 06/14/20 24 06/15/2024 CBC WITH DIFFE RENTI AL/PL ATELE T RDW 13.7 % 11.6-1 5.4 Not Available [facility] ([facility]) [address] [place] [address], [address], 06/15/2024 09:13:57 06/14/20 24 06/15/2024 CBC WITH DIFFE RENTI AL/PL ATELE T platelets 292 x10e3 /uL 150-45 0 Not Available [facility] ([facility]) [address], [place], [address], 06/15/2024 09:13:57 06/14/20 24 06/15/2024 CBC WITH DIFFE RENTI AL/PL ATELE T neutrophils 57 % notest ab. Not Available [facility] ([facility]) [address], [place], [address], 06/15/2024 09:13:57 06/14/20 24 06/15/2024 CBC WITH DIFFE RENTI AL/PL ATELE T lymphs 29 % notest ab. Not Available [facility] ([facility]) [address], [place], [address], 06/15/2024 09:13:57 06/14/20 24 06/15/2024 CBC WITH DIFFE RENTI AL/PL ATELE T monocytes 11 % notest ab. Not Available [facility] ([facility]) [address], [place], [address], 06/15/2024 09:13:57 06/14/20 24 06/15/2024 CBC WITH DIFFE RENTI AL/PL ATELE T eos 2 % notest ab. Not Available [facility]) [address], [place], [address], 06/15/2024 09:13:57 06/14/20 24 06/15/2024 CBC WITH DIFFE RENTI AL/PL ATELE T basos 1 % notest ab. Not Available [facility]) [address], [place], [address], 06/15/2024 09:13:57 06/14/20 24 06/15/2024 CBC WITH DIFFE RENTI AL/PL ATELE T neutrophils (absolute) 3.6 x10e3 /uL 1.4-7. 0 Not Available [facility] ([facility]) [address], [place], [address], 06/15/2024 09:13:57 06/14/20 24 06/15/2024 CBC WITH DIFFE RENTI AL/PL ATELE T lymphs (absolute) 1.8 x10e3 /uL 0.7-3. 1 Not Available [facility] ([facility]) [address], [place], [address], 06/15/2024 09:13:57 06/14/20 24 06/15/2024 CBC WITH DIFFE RENTI AL/PL ATELE T monocytes(ab solute) 0.7 x10e3 /uL 0.1-0. 9 Not Available [facility] ([facility]) [address], [place], [address], 06/15/2024 09:13:57 06/14/20 24 06/15/2024 CBC WITH DIFFE RENTI AL/PL ATELE T eos (absolute) 0.1 x10e3 /uL 0.0-0. 4 Not Available [facility] ([facility]) [address], [place], [address], 06/15/2024 09:13:57 06/14/20 24 06/15/2024 CBC WITH DIFFE RENTI AL/PL ATELE T baso (absolute) 0.1 x10e3 /uL 0.0-0. 2 Not Available [facility] ([facility]) [address], [place], [address], 06/15/2024 09:13:57 06/14/20 24 06/15/2024 CBC WITH DIFFE RENTI AL/PL ATELE T immature granulocytes 0 % notest ab. Not Available [facility] ([facility]) [address], [place], [address], 06/15/2024 09:13:57 06/14/20 24 06/15/2024 CBC WITH DIFFE RENTI AL/PL ATELE T immature grans (abs) 0.0 x10e3 /uL 0.0-0. 1 Not Available [facility]) [address], [place], [address], 06/15/2024 09:13:57 06/14/20 24 06/15/2024 TRIIO DOTHY WADE E (T3), FREE triiodothyro nine (T3), free 3.8 pg/mL 2.0-4. 4 Not Available [facility] [address], [place], [address], 06/15/2024 09:13:58 06/20/20 24 06/20/2024 PFT, compl ete No observ ation record ed. [facility] [address], [place], [address], 06/20/2024 23:16:34 08/03/19 25 08/03/2024 LDCT, chest , for lung cance r scree margy No observ ation record ed. [place] [id number] [facility] [address], [place], [address], 08/05/2024 17:15:57 08/05/19 25 07/26/2024 home sleep study No observ ation record ed. [place] [address] [facility] [address], [place], [address], 08/09/2024 10:15:14 08/08/19 25 07/26/2024 home sleep study No observ ation record ed. [facility] [address] [facility], [place], [address], 08/09/2024 10:15:15 08/10/19 25 08/10/2024 NM, myoca rdial perfu nancy scan No observ ation record ed. [facility] [address] , [place], [address], 08/12/2024 11:14:34 03/06/20 25 08/18/2024 polys omnog billy , titra tion study (PROC ) No observ ation record ed. [place], [place], [address], 09/09/2024 13:14:54 09/10/19 25 08/18/2024 home sleep study No observ ation record ed. [facility] [address] [facility], [place], [address], 09/09/2024 13:22:28 10/29/19 25 10/28/2024 MRI, brain , w/wo contr ast No observ ation record ed. [address], [place], [address], 11/11/2024 09:51:35 11/25/19 25 11/23/2024 US, echo ardio gram No observ ation record ed. [facility] [address] [facility], [place], [address], 12/13/2024 14:17:22 02/09/20 25 10/28/2024 MRI, brain , w/wo contr ast No observ ation record ed. [facility] [address], [place], [address], 02/14/2025 09:48:23 Result Notes None recorded. Problems Name Problem SNOMED Code Status Onset Date Resolution Date Notes Provider Name and Address Organization Details Recorded Time Essential hypertension 39509807 Active 2023 Faith Stone LPN null, [place] - [facility] 4 10:13:59 Epilepsy 97905213 Active 2023 Faith Stone LPN [place], [place] [facility] 4 10:14:14 Obstructive sleep apnea syndrome 90452808 Active 2023 Prasanth Dockery MD Attn: Eneida cabrera,[address] [facility], [place], [address], [place] - [facility] 4 11:12:29 Gastroesophage al reflux disease without esophagitis 055963020 Active 2023 Prasanth Dockery MD Attn: Andreiabelén cabrera,[address] [place], [address], [place] [facility] 4 11:12:38 Skin lesion 88378331 Active 2023 Stewart Rolon MA [place], [place] [facility] 4 12:23:37 Body mass index 40+ - severely obese 950029246 Active 2023 Stewart Rol[place] [facility] 4 12:23:38 Morbid obesity 761736746 Active 2023 Stewart Rol[place] [facility] 4 12:23:39 Dyspnea 809043489 Active 2023 Stewart Rol[place] [facility] 4 12:23:43 Erectile dysfunction 551194731 Active 2023 Stewart Rol[place] [facility] 4 12:23:46 Sleep disorder 96968899 Active 2023 Stewart Rol[place] [facility] 4 12:23:48 Nicotine dependence 00849009 Active 2023 Stewart Rol[place] [facility] 4 12:23:50 Dyslipidemia 549872988 Active 2024 Prasanth Dockery MD Attn: Eneida cabrera,[address] [place], [address], [place] [facility] 5 13:11:40 Left ventricular diastolic dysfunction 724471791 Active 2024 Prasanth Dockery MD Attn: Eneida cabrera,[address] [place], [address], [place] [facility] 5 17:14:49 Problem Notes None recorded. Procedures Surgical History Date Name Laterality Status Provider Name and Address Organization Details Recorded Time procedure on brain completed CHARISMA Ellison - [facility] 02/09/2024 15:37:58 Imaging Results None recorded. Procedure Notes None recorded. Medical Equipment None Reported. Allergies Allergen ID Allergen Name Allergen Category Reaction Reaction Severity Criticality Documentation Date Start Date Code Code System Note Provider Name and Address Organization Details Recorded Time 829944 lisinopri l medicatio n swelling mild low 02/09/2024 71494 RxNorm Itzel Young MA null, [place] - [facility] 15:32:54 Medications Name Sig Start Date Stop Date [...] completed Not Available Not Available Not Available chlorthal idone 25 mg tablet TAKE 1 TABLET BY MOUTH EVERY DAY DIRECTED active Not Available Not Available No t Available omeprazol e 40 mg capsule,d elayed release 02/09 completed pt stopped taking this. Not Available Not Available Not Available sildenafi l 100 mg tablet TAKE 1 TABLET BY MOUTH 40 MINUTES BEFORE SEXUAL ACTIVITY . NO MORE THAN 1 IN 24 HOURS active Not Available Not Available No t Available lamotrigi ne 25 mg tablet 02/09 [...] Not Available Not Available Not Avai lable fluticaso ne propionat e 50 mcg/actua tion nasal spray,dixie pension SHAKE LIQUID AND USE 2 SPRAYS IN EACH NOSTRIL DAILY active Not Available Not Available No t Available lamotrigi ne 100 mg tablet TAKE 1 [...] Not Available Rybelsus 3 mg tablet Take 1 tablet every day by oral route. 03/17 completed Not Available Not Available Not Available Ozempic 0.25 mg or 0.5 mg (2 mg/3 mL) subcutane ous pen injector INJECT 0.25 MG UNDER THE SKIN EVERY WEEK FOR 4 WEEKS THEN GO TO 0.5 MG UNDER THE SKIN EVERY WEEK FOR 4 WEEKS active Not Available Not Available No t Available Vitals Date Recorded Body height Body mass index (BMI) Body weight Heart rate Oxygen saturation Oxygen saturation in Arterial blood by Pulse oximetry Systolic And Diastolic Provider Name and Address Organization Details Last Updated DateTime 175.26 cm 44.8 kg/m2 925829. 85 g 76 /min 96 % 96 % 132/92 mm[Hg] Carlee Caputo MA [place] - [facility] 04/08/202 5 11:30:29 Date Recorded Body height Body mass index (BMI) Body weight Heart rate Oxygen saturation Oxygen saturation in Arterial blood by Pulse oximetry Systolic And Diastolic Provider Name and Address Organization Details Last Updated DateTime 5 175.26 cm 45.1 kg/m2 037550. 83 g 90 /min 96 % 96 % 138/76 mm[Hg] Itzel Young MA [facility] 5 10:54:10 Date Recorded Body height Heart rate Oxygen saturation Oxygen saturation in Arterial blood by Pulse oximetry Systolic And Diastolic Provider Name and Address Organization Details Last Updated DateTime 5 175.26 cm 89 /min 96 % 96 % 166/86 mm[Hg] Carlee Caputo MA [facility] 5 16:21:18 Date Recorded Body height Heart rate Oxygen saturation Oxygen saturation in Arterial blood by Pulse oximetry Body mass index (BMI) Body weight Systolic And Diastolic Provider Name and Address Organization Details Last Updated DateTime 5 175.26 cm 86 /min 97 % 97 % 45.8 kg/m2 305577. 71 g 132/68 mm[Hg] Itzel Young MA [facility] 5 09:37:42 Date Recorded Body height Body mass index (BMI) Body weight Heart rate Oxygen saturation Oxygen saturation in Arterial blood by Pulse oximetry Systolic And Diastolic Provider Name and Address Organization Details Last Updated DateTime 4 175.26 cm 44.6 kg/m2 732798. 9 g 85 /min 96 % 96 % 124/86 mm[Hg] Carlee Caputo MA [facility] 4 10:21:39 Social History Question Answer Notes LastModified by Organizat ion Details LastModified Time Tobacco Smoking Status Former Smoker Stopped October 2023 Stewart Rolon MA [facility], [facility] 06/14/2024 11:29:02 Are You Blind Or Do You Have [...] Date Of Your Most Recent Tobacco Screening? 03/28/2025 Information not available 03/28/2025 What Is Your Current Pack Years? 10packyears [...] Tobacco? 45 [email or web address] Information not available 06/14/2024 Sex: Male Functional Status Question Answer Note LastModified by Organizat ion Details LastModified Time Do you use any illicit or recreational drugs? No Information not available 02/09/2024 Do you or have you ever used any other forms of tobacco or nicotine? No Information not available 02/09/2024 What is your level of alcohol consumption? Occasional Information not available 02/09/2024 Are you currently employed? No Information not available 02/09/2024 Are you able to care for yourself independently? Yes Information not available 02/09/2024 What is your exercise level? None Information not available 02/09/2024 Mental Status None recorded. Family History Relationship Description Onset Age of this Age Resolved Age Notes LastModified by Organization Details LastModified Time Mother Diabetes mellitus [email or web address] Not available 2023 15:40:00 Father Malignant neoplasm of prostate [email or web address] Not available 2023 15:40:05 Medical History Condition Response High Blood Pressure Y Seizures/Epilepsy Y Past Encounters Encounter ID Performer Location Encounter Start Date Encounter Closed Date Diagnosis/Indication Diagnosis SNOMED-CT Code Diagnosis ICD10 Code Diagnosis IMO Codes Diagnosis Note [id number] Prasanth Dockery MD [facility] ([facility]) [address] [place] [phone] 02/09/2024 14:52:13 02/09/2024 16:38:33 Essential hypertension 19873778 I10 Obesity 553240641 E66.8 Diabetes m ellitus screening 861148501 Z13.1 Screening for malignant neoplasm of prostate 691289420 Z12.5 [id number] Prasanth Dockery MD [facility] ([facility]) [address] [place] [phone] 06/14/2024 09:48:05 06/14/2024 11:48:14 Body mass index 40+ - severely obese 746491096 Z68.41 Morbid obesity 707980102 E66.01 Obstructiv e sleep apnea syndrome 82510185 G47.33 Gastroesop hageal reflux disease without esophagitis 766088981 K21.9 Skin lesion 95505912 L98 .9 Dyspnea 440915348 R06.00 Essential hypertension 82645724 I10 Erectile dysfunction 860 887740 F52.21 Sleep disorder 38922099 G47.9 Nicotine dependence 5629 4008 Z87.891 History of seizure 89484 77090 Z86.69 Prediabetes [id number] R7 3.03 [id number] Prasanth Dockery MD [facility] (Adult Med) [address] [place] [address] [phone] 10/11/2024 10:46:28 10/11/2024 12:20:08 Body mass index 40+ - severely obese [id number] Z68.41 Morbid obesity 917683323 E66.01 Lesion of brain 13066819 8 G93.9 Screening for malignant neoplasm of colon 389138680 Z12.11 Gastroesop hageal reflux disease without esophagitis 345750617 K21.9 Essential hypertension 49325591 I10 Dyslipidemia 865308663 E 78.5 [id number] MD [facility] (Adult Med) [address] [place] [address] [phone] 02/07/2025 10:36:26 02/07/2025 11:30:11 Obese class III 184346441 E66.813 E66.3 [id number] BMI 45.1 Essential hypertension 68365990 I10 Dyslipidemia 186270122 E 78.5 421130 Erectile dysfunction 860 331712 N52.9 034986167 Left ventr icular diastolic dysfunction 533454667 I51.9 [id number] Prasanth Dockery MD [facility] (Adult Med) [address] [place] [address] [phone] 03/17/2025 11:36:23 03/17/2025 14:30:29 Essential hypertension 83761219 I10 15897 Blood pressure taking 46 012905 Z01.30 [id number] Prasanth Dockery MD [facility] (Adult Med) [address] [place] [address] [phone] 03/28/2025 09:29:51 03/28/2025 10:42:21 Dizziness 077502986 R42 49874 Rhinitis 05122118 J31.0 47704607 Obese class III 55630107 5 E66.813 E66.3 9551999573 BMI 45.8 Health Concerns Section Related Observation LastModified by Organization Detai ls LastModified Time None Recorded Concern Status LastModified by Organization Details LastModified Time None Recorded Advance Directives Directive None Recorded Payers Insurance Date Sequence Insurance Name Policy Number Policy Brian Covered Member ID Brian Member ID Guarantor Name 03/25/2025 1 [facility] (MEDICARE REPLACEMENT/A DVANTAGE - HMO) [id number] Keanu Pleitez [id number] Keanu Pleitez Notes Date Note Type Note Provider Name and Address Organization Details Recorded Time 06/14/2024 text/html Several issues 1. He has got a skin lesion on [...] Prasanth Dockery MD Attn: Accounting, [address] [facility], [place], [address], [facility] 06/19/2024 13:57:26 10/11/2024 text/html 1. Hypertension blood pressure looks pretty well controlled diastolic right of the margins at 92. Sleep apnea he is getting settled in with his device. 3. Obesity still struggling on some weight loss there dyslipidemia taking the atorvastatin and he needs to have an MRI of his brain apparently when he was in the [facility] he was told that he had a mass that needed to be followed up on but he is asymptomatic from it Prasanth Dockery MD Attn: Accounting, [address] [facility], [place], [address], [facility] 11/05/2024 13:13:59 02/07/2025 text/html Hypertension blood pressure looks good today. Erectile dysfunction he would like some generic Viagra. Dyslipidemia states that he is taking his atorvastatin history of stroke stable per last MRI diastolic dysfunction no heart failure symptoms Prasanth Dockery MD Attn: Accounting, [address], [place], [address], [facility] 03/06/2025 17:19:14 03/28/2025 text/html Keanu came in for a blood pressure check with his fine and he started telling the nurse he has been having these dizzy spells I came in and evaluate him he is having these episodes for about 15-25 seconds maybe once or twice a week where his head feels like it is swimming a little bit he did see and does have some rhinitis symptoms with nothing to suggest infection no ringing in his ears no palpitations and he has been evaluated by Cardiology earlier this year Prasanth Dockery MD Attn: Accounting, [address] [place], [address], [facility] 03/28/2025 21:55:33
[2025-05-09 07:49] VITALS: BP 139/87; PULSE 79; RESP 18; TEMP 36.3; O2SAT 98
[2025-05-09] MEDS: LACTATED RINGERS 1,000 ML 150 ML IV CONT (07:57)
--- NOTE | 2025-05-09 08:09 | WPDANESEPPF ---
Anes - Initial Pre Proc Eval Procedure: Operation Date: 05/09/25 09:00 Proposed Procedures p Screening Colonoscopy - Hany Mckeon MD Date/Time: 05/09/25 08:09 Surgeon: Hany Mckeon MD Pre Op Diagnosis: Screening Patient Data Age: 64 Gender: M Height: 1.75 m Weight: 134.6 kg Last Vital Signs Temp 36.3 C L 05/09/25 07:49 Pulse 79 05/09/25 07:49 Resp 18 05/09/25 07:49 BP 139/87 05/09/25 07:49 Pulse Ox 98 05/09/25 07:49 O2 Del Method Room Air 05/09/25 07:49 Allergies Allergy/AdvReac Type Severity Reaction Status Date / Time lisinopril Allergy Swelling Verified 05/09/25 07:47 Home Medications ?Medication ?Instructions ?Recorded ?Confirmed ?Type atorvastatin 10 mg tablet 10 mg PO DAILY 04/26/25 05/09/25 History chlorthalidone 25 mg tablet 25 mg PO DAILY 04/26/25 05/09/25 History metoprolol succinate 50 mg 50 mg PO DAILY 04/26/25 05/09/25 History tablet,extended release 24 hr Patient hx anesthesia problems: none Family hx anesthesia problems: none Results Review: All pre-operative results and documents have been reviewed as part of the pre-operative evaluation. [facility] Past Medical History Medical History Dyslipidemia Seizure disorder Hypertension Family History Family History Mother Diabetes mellitus Father Malignant neoplasm of prostate Social History Social History Smoking packs per day: 0.75 Smoking cigarettes per day: 15.0 Years smoked: 25 Smoking pack-years: 18.75 Smoking status: Never smoker Alcohol intake: current Substance use type: does not use Living arrangements: alone Spiritual care concerns: No Anes - Eval Final PreProcedure Day of Procedure 05/09/25 08:09 Patient weight: morbidly obese Heart: regular rate and rhythm Lungs: clear to auscultation Airway: Mallampati scale class III Neurological: alert and oriented Last oral intake: >/= 8 hours ASA classification: III Emergent: no Anesthetic plan: proceed Anesthesia type and monitoring: general GIVS and standard monitoring Results Review: All pre-operative results and documents have been reviewed as part of the pre-operative evaluation. Informed Consent: The patient's anesthetic plan and its attendant risks and benefits were discussed with the patient/family/POA. Questions were solicited and answers provided to the satisfaction of the patient/family/POA.
--- NOTE | 2025-05-09 08:46 | PM.HPGS ---
History of Present Illness History of Present Illness Consent: Risks, benefits, and alternatives have been discussed and questions answered. Patient agrees to proceed with procedure. Chief complaint: Screening Narrative: Keanu Pleitez is a 64 year old male here for screening colonoscopy, last one about 10 years ago Review of Systems Review of Systems: All systems reviewed & are unremarkable except as noted in HPI and below PMFSH Past Medical History Medical History (Updated 05/09/25 @ 08:48 by Hany Mckeon MD) Colon cancer screening Dyslipidemia Seizure disorder Hypertension Family History Family History Mother Diabetes mellitus Father Malignant neoplasm of prostate Social History Social History Smoking packs per day: 0.75 Smoking cigarettes per day: 15.0 Years smoked: 25 Smoking pack-years: 18.75 Smoking status: Never smoker Alcohol intake: current Substance use type: does not use Living arrangements: alone Spiritual care concerns: No Meds Home Medications and Allergies Home Medications ?Medication ?Instructions ?Recorded ?Confirmed ?Type atorvastatin 10 mg tablet 10 mg PO DAILY 04/26/25 05/09/25 History chlorthalidone 25 mg tablet 25 mg PO DAILY 04/26/25 05/09/25 History metoprolol succinate 50 mg 50 mg PO DAILY 04/26/25 05/09/25 History tablet,extended release 24 hr Allergies Allergy/AdvReac Type Severity Reaction Status Date / Time lisinopril Allergy Swelling Verified 05/09/25 07:47 Vital Signs Vital Signs - 24 hr 05/09/25 07:49 Temperature 97.4 F L Pulse Rate 79 Respiratory Rate 18 Blood Pressure 139/87 Pulse Oximetry 98 Oxygen Delivery Room Air Exam Const: General: comfortable and no acute distress HENMT: Face/Nose/Sinus: Normal nares present Eyes: General: appearance normal, both eyes and all related structures Neck: Neck: no JVD Resp: Auscultation: clear to auscultation bilaterally Cardio: Rate: regular rate Rhythm: regular rhythm GI: Inspection: non-distended GI Palp: Yes Soft to palpation Skin: General skin exam: normal color Extrem: General: normal to inspection Psych: Mental Status: mental status grossly normal Assessment and Plan Assessment and plan (1) Colon cancer screening: Code(s): Z12.11 - Encounter for screening for malignant neoplasm of colon Status: Acute Assessment and Plan: colonoscopy
[2025-05-09 09:10] VITALS: BP 126/74; PULSE 73; RESP 14; O2SAT 97
[2025-05-09 09:20] VITALS: BP 128/80; PULSE 70; RESP 12; O2SAT 97
[2025-05-09 09:30] VITALS: BP 127/88; PULSE 62; RESP 15; O2SAT 99
== END 2025-05-09 09:40 | disposition home or self-care (01) ==
PROVIDERS: PCP Internal Medicine; Referring Provider Internal Medicine; Visit Provider Internal Medicine Gastroenterology
PROC: 0DJD8ZZ Inspection of Lower Intestinal Tract, Via Natural or Artificial Opening Endoscopic (ICD-10-PCS; CPT 45378; principal; 2025-05-09 09:00)
DX: Z12.11 Encounter for screening for malignant neoplasm of colon (principal); E78.5 Hyperlipidemia, unspecified; I10 Essential (primary) hypertension; G40.909 Epilepsy, unspecified, not intractable, without status epilepticus; E66.01 Morbid (severe) obesity due to excess calories; Z68.41 Body mass index [BMI] 40.0-44.9, adult; Z80.42 Family history of malignant neoplasm of prostate
CPT/HCPCS: G0105; J2003; J2704; J7120